=== PATIENT | female | born 1995 | race Caucasian/White ===

== ENCOUNTER 2016-07-22 11:23 | Emergency (ER) | payer OTHER ==
[~2016-07-22] VITALS: Ht 157.5 cm; Wt 63.5 kg
[~2016-07-22 11:23] MED LIST: BIRTH CONTROL; DOXY-4 PO; HYDR-1189 PO; HYDR-4100 PO; IBUP-1969 PO; PHEN16.227 PO; SIME80TA5 PO
[2016-07-22 11:26] VITALS: BP 113/78; PULSE 88; RESP 16; TEMP 98; O2SAT 97
[2016-07-22 12:48] LABS: BILIRUBIN,URINE NEGATIVE (NEGATIVE); BLOOD, URINE NEGATIVE (NEGATIVE); CLARITY/URINE CLEAR (CLEAR); COLOR,URINE YELLOW (YELLOW); GLUCOSE,URINE NEGATIVE (NEGATIVE); KETONES,URINE 1+ (NEGATIVE); LEUKOCYTE ESTERASE ,URINE TRACE (NEGATIVE); NITRITE, URINE NEGATIVE (NEGATIVE); PROTEIN URINE NEGATIVE (NEGATIVE); UROBILINOGEN,URINE 0.2 (0.2-1.0)
[2016-07-22 12:52] LABS: BASOPHILS # (AUTO) 0.1 K/uL (0.0-0.2); BASOPHILS % (AUTO) 1.6 % (0.0-2.0); EOSINOPHILS # (AUTO) 0.1 K/uL (0.0-0.4); EOSINOPHILS % (AUTO) 1.4 % (0.0-4.0); HEMATOCRIT 36.4 % (36-48); HEMOGLOBIN 12.6 g/dL (12.0-16.0); LYMPHOCYTES # (AUTO) 1.7 K/uL (1.0-5.5); LYMPHOCYTES % (AUTO) 22.2 % (20.5-51.5); MEAN CORPUSCULAR HEMOGLOBIN 30 pg (27-31); MEAN CORPUSCULAR HGB CONC 35 % (32-36); MEAN CORPUSCULAR VOLUME 86 fL (79.0-98.0); MONOCYTES # (AUTO) 0.6 K/uL (0.0-1.0); MONOCYTES % (AUTO) 7.8 % (1.7-9.3); NEUTROPHILS # (AUTO) 5.3 K/uL (1.8-7.7); PLATELET COUNT (AUTO) 306 K/uL (130-430); RED BLOOD CELL COUNT(AUTO) 4.25 MIL/uL (4.2-6.2); RED CELL DISTRIBUTION WIDTH 12.2 % (9.0-15.0); WHITE BLOOD COUNT (AUTO) 7.8 K/uL (4.5-11.0)
[2016-07-22 12:58] LABS: BACTERIA,URINE MODERATE /HPF (None Seen); MUCUS,URINE 1+ /LPF (None Seen); RBC,URINE 0-3 /HPF (0-3)
[2016-07-22 13:05] LABS: INR 1.1 (0.8-1.2); PROTHROMBIN TIME 11.4 SECS (9.5-12.5)
[2016-07-22 13:13] LABS: CALCIUM 8.9 mg/dL (8.4-11.0); CREATININE 0.71 mg/dL (0.55-1.30); POTASSIUM 3.7 mmol/L (3.5-5.1)
[2016-07-22 13:18] LABS: ALBUMIN 3.9 g/dL (3.4-4.8); TOTAL BILIRUBIN 0.5 mg/dL (0.0-1.0); TOTAL PROTEIN, SERUM 7.2 g/dL (6.4-8.3)
[2016-07-22] MEDS ORDERED: MORPHINE 4 MG/ML INJ. SYRINGE IVP ONE ×2 (14:00→14:45)
[2016-07-22] MEDS ORDERED: ONDANSETRON HCL 4 MG/2 ML VIAL IVP ONE ×2 (14:15→14:45)
[2016-07-22 15:30] VITALS: BP 114/80; PULSE 84; RESP 16; TEMP 98; O2SAT 97
== END 2016-07-22 15:30 | disposition home or self-care (01) ==
LOC: SED 11:23
DX: R10.32 Left lower quadrant pain (principal); Z88.0 Allergy status to penicillin; Z88.6 Allergy status to analgesic agent; Z88.8 Allergy status to other drugs, medicaments and biological substances
CPT/HCPCS: 36415; 74176; 80053; 81000; 81025; 82150; 83690; 84703; 85025; 85610; 85730; 87086; 96374; 96375; 99285; J2270; J2405

== ENCOUNTER 2017-09-26 13:22 | Observation (INO) | payer BC, OTHER ==
[~2017-09-26] VITALS: Ht 154.9 cm; Wt 61.2 kg
[2017-09-26 13:30] VITALS: BP_SYST 109
[2017-09-26] MEDS ORDERED: MORPHINE 4 MG/ML INJ. SYRINGE IVP ONE (13:45)
[2017-09-26] MEDS ORDERED: DIPHENHYDRAMINE INJ 50 MG/ML VIAL IVP ONE (13:45)
[2017-09-26 14:00] LABS: BILIRUBIN,URINE NEGATIVE (NEGATIVE); BLOOD, URINE NEGATIVE (NEGATIVE); CLARITY/URINE CLEAR (CLEAR); COLOR,URINE YELLOW (YELLOW); GLUCOSE,URINE NEGATIVE (NEGATIVE); KETONES,URINE NEGATIVE (NEGATIVE); LEUKOCYTE ESTERASE ,URINE 1+ (NEGATIVE); NITRITE, URINE NEGATIVE (NEGATIVE); PH,URINE 7.5 (5.0-8.0); PROTEIN URINE NEGATIVE (NEGATIVE); UROBILINOGEN,URINE 0.2 (0.2-1.0)
[2017-09-26 14:17] LABS: BACTERIA,URINE MODERATE /HPF (None Seen); MUCUS,URINE None Seen /LPF (None Seen); RBC,URINE NONE SEEN /HPF (0-3)
[2017-09-26 14:29] LABS: BASOPHILS % (AUTO) 0.7 % (0.0-2.0); EOSINOPHILS # (AUTO) 0.1 K/uL (0.0-0.4); EOSINOPHILS % (AUTO) 1.7 % (0.0-4.0); HEMATOCRIT 39.8 % (36-48); HEMOGLOBIN 13.6 g/dL (12.0-16.0); LYMPHOCYTES # (AUTO) 1.8 K/uL (1.0-5.5); LYMPHOCYTES % (AUTO) 27.1 % (20.5-51.5); MEAN CORPUSCULAR HEMOGLOBIN 30 pg (27-31); MEAN CORPUSCULAR HGB CONC 34 % (32-36); MEAN CORPUSCULAR VOLUME 88 fL (79.0-98.0); MONOCYTES # (AUTO) 0.7 K/uL (0.0-1.0); MONOCYTES % (AUTO) 9.9 % (1.7-9.3); NEUTROPHILS % (AUTO) 60.6 % (40.0-70.0); PLATELET COUNT (AUTO) 319 K/uL (130-430); RED CELL DISTRIBUTION WIDTH 12.2 % (9.0-15.0); WHITE BLOOD COUNT (AUTO) 6.6 K/uL (4.5-11.0)
[2017-09-26 14:32] LABS: CALCIUM 9.6 mg/dL (8.4-11.0); CREATININE 0.71 mg/dL (0.55-1.30); POTASSIUM 3.5 mmol/L (3.5-5.1)
[2017-09-26] MEDS ORDERED: cefTRIAXone 1 GM IVPB PREMIX 50 ML IV ONE (14:45)
[2017-09-26 14:46] LABS: TOTAL BILIRUBIN 0.4 mg/dL (0.0-1.0)
[2017-09-26] MEDS ORDERED: MORPHINE 2 MG/ML INJ. SYRINGE IVP ONE (16:00)
[2017-09-26] MEDS ORDERED: MORPHINE 4 MG/ML INJ. SYRINGE ONE (16:00)
[2017-09-26] MEDS ORDERED: MAGNESIUM CITRATE 300 ML ORAL SOLUTION PO ONE (16:15)
[2017-09-26] MEDS ORDERED: D5/0.45 NS 1,000 ML IV ONE (18:00)
[2017-09-26 18:38] VITALS: BP_SYST 113
[2017-09-26 19:00] VITALS: BP_SYST 118
[2017-09-26] MEDS: MORPHINE 4 MG/ML INJ. SYRINGE IVP PRN ×2 (19:29→22:41)
[2017-09-26] MEDS: ONDANSETRON HCL 4 MG/2 ML VIAL IVP PRN (21:43)
[2017-09-26 22:16] VITALS: BP_SYST 106
[2017-09-26] MEDS: traMADol HCL HCL 50 MG TABLET (ULTRAM) PO SCH ×2 (23:38→23:45)
[2017-09-27] MEDS: MORPHINE 4 MG/ML INJ. SYRINGE IVP PRN ×3 (01:47→14:01)
[2017-09-27] MEDS: traMADol HCL HCL 50 MG TABLET (ULTRAM) PO SCH ×3 (05:46→18:00)
[2017-09-27 08:03] VITALS: BP_SYST 94
[2017-09-27] MEDS: ONDANSETRON HCL 4 MG/2 ML VIAL IVP PRN ×2 (11:27→22:53)
[2017-09-27 12:31] VITALS: BP_SYST 91
[2017-09-27 16:35] VITALS: BP_SYST 90
[2017-09-27] MEDS ORDERED: fentaNYL CITRATE 250 MCG/5 ML AMP IV ONE (17:40)
[2017-09-27] MEDS ORDERED: BUPIVACAINE /PF 0.5% 30 ML VIAL INJ ONE (17:40)
[2017-09-27] MEDS ORDERED: DEXAMETHASONE SOD PHOSPHATE 4 MG/ML VIAL IVP ONE (17:40)
[2017-09-27] MEDS ORDERED: MEPERIDINE HCL/PF 100 MG/ML AMP IM ONE (17:40)
[2017-09-27] MEDS ORDERED: ONDANSETRON HCL 4 MG/2 ML VIAL IVP ONE ×2 (17:40→18:45)
[2017-09-27] MEDS ORDERED: SEVOFLURANE 15 MIN GAS INH ONE (17:40)
[2017-09-27] MEDS ORDERED: PROPOFOL 200MG/ 20ML VIAL (DIPRIVAN) IV ONE (17:40)
[2017-09-27] MEDS ORDERED: MIDAZOLAM HCL 5 MG/5 ML VIAL IVP ONE (17:40)
[2017-09-27] MEDS ORDERED: ROCURONIUM BROMIDE 10 MG/ML (ZEMURON) IV ONE (17:40)
[2017-09-27] MEDS ORDERED: LIDOCAINE 1% 10 MG/ML, 20 ML MDV INJ ONE (17:40)
[2017-09-27] MEDS ORDERED: NEOSTIGMINE METHYLSULFATE 1 MG/ML, 10 ML VIAL IVP ONE (17:40)
[2017-09-27] MEDS ORDERED: CEFAZOLIN 2 GM IVPB PREMIX 50 ML IV ONE (17:40)
[2017-09-27] MEDS ORDERED: SUCCINYLCHOLINE CHLORIDE 20 MG/ML(QUELICIN) IVP ONE (17:40)
[2017-09-27] MEDS ORDERED: EPINEPHrine 1 MG/ML AMP IV ONE (17:40)
[2017-09-27] MEDS ORDERED: GLYCOPYRROLATE 0.2 MG/ML VIAL IJ ONE (17:40)
[2017-09-27] MEDS ORDERED: BUPIVACAINE /PF 0.25% 30 ML VIAL INJ ONE (17:40)
[2017-09-27] MEDS ORDERED: MORPHINE 4 MG/ML INJ. SYRINGE IVP PRN ×2 (18:30→18:45)
[2017-09-27] MEDS ORDERED: HYDROcodone/ACETAMIN 5-325 MG TAB (NORCO/ VICODIN) PO PRN (18:30)
[2017-09-27] MEDS ORDERED: ONDANSETRON HCL 4 MG/2 ML VIAL IVP PRN (18:30)
[2017-09-27] MEDS ORDERED: MEPERIDINE HCL/PF 25 MG/ML DISP.SYRIN IVP PRN (18:45)
[2017-09-27] MEDS ORDERED: fentaNYL CITRATE/PF 100 MCG/2 ML AMP IVP PRN (18:45)
[2017-09-27] MEDS ORDERED: NALOXONE HCL 0.4 MG/ML AMP (NARCAN) IVP ONE (18:45)
[2017-09-27] MEDS ORDERED: MIDAZOLAM HCL 5 MG/5 ML VIAL IVP PRN (18:45)
[2017-09-27 19:13] LABS: BILIRUBIN,URINE NEGATIVE (NEGATIVE); BLOOD, URINE NEGATIVE (NEGATIVE); CLARITY/URINE HAZY (CLEAR); COLOR,URINE YELLOW (YELLOW); GLUCOSE,URINE NEGATIVE (NEGATIVE); KETONES,URINE 2+ (NEGATIVE); LEUKOCYTE ESTERASE ,URINE NEGATIVE (NEGATIVE); NITRITE, URINE NEGATIVE (NEGATIVE); PH,URINE 8.5 (5.0-8.0); PROTEIN URINE NEGATIVE (NEGATIVE); UROBILINOGEN,URINE 0.2 (0.2-1.0)
[2017-09-27 19:24] LABS: BACTERIA,URINE MODERATE /HPF (None Seen); MUCUS,URINE None Seen /LPF (None Seen); RBC,URINE 0-3 /HPF (0-3); URINE AMORPHOUS PHOSPHATES 3+ /HPF (None Seen); WBC,URINE 0-3 /HPF (0-3)
[2017-09-27 20:12] VITALS: BP_SYST 113
[2017-09-27] MEDS: OXYCODONE/ACETAMINOPHEN 5-325 TABLET PO PRN (22:54)
[2017-09-28 00:32] VITALS: BP_SYST 102
[2017-09-28] MEDS: traMADol HCL HCL 50 MG TABLET (ULTRAM) PO SCH ×3 (00:46→11:32)
[2017-09-28 08:10] VITALS: BP_SYST 92
[2017-09-28] MEDS: OXYCODONE/ACETAMINOPHEN 5-325 TABLET PO PRN (08:38)
[2017-09-28] MEDS ORDERED: TRAM50TA92 PO (08:50)
[2017-09-28 09:13] VITALS: BP_SYST 92
[2017-09-28 12:36] VITALS: BP_SYST 97
== END 2017-09-28 12:05 | disposition home or self-care (01) ==
LOC: SED 13:22 → SMU 18:01
PROVIDERS: ADMIT Specialist; ATTEND Specialist
DX: N93.8 Other specified abnormal uterine and vaginal bleeding (principal); N80.9 Endometriosis, unspecified; R10.2 Pelvic and perineal pain
CPT/HCPCS: 36415; 58662; 74018; 76830; 76857; 80053; 81000 ×2; 81025; 83605; 84702; 85025; 87040; 87081; 87086 ×2; 96365; 96375; 96376; 99285; C1727; G0378 ×3; J0171; J0330; J0690; J0696; J1100; J1200; J2001; J2175; J2250; J2270 ×2; J2405 ×2; J2704; J2710; J3010; J3490 ×3

== ENCOUNTER 2017-12-17 21:29 | Inpatient (IN) | payer OTHER ==
[~2017-12-17] VITALS: Ht 154.9 cm; Wt 62.6 kg
[~2017-12-17 21:29] MED LIST changes: -BIRTH CONTROL; -DOXY-4 PO; -HYDR-1189 PO; -HYDR-4100 PO; -IBUP-1969 PO; -PHEN16.227 PO; -SIME80TA5 PO; +TRAM50TA92 PO
[2017-12-17 21:34] VITALS: BP_SYST 134
[2017-12-17] MEDS ORDERED: NACL 0.9% 1,000 ML IV ONE (23:24)
[2017-12-17] MEDS ORDERED: DIPHENHYDRAMINE INJ 50 MG/ML VIAL IVP ONE (23:30)
[2017-12-17] MEDS ORDERED: MORPHINE 2 MG/ML INJ. SYRINGE IVP ONE (23:30)
[2017-12-17 23:52] LABS: BASOPHILS # (AUTO) 0.1 K/uL (0.0-0.2); BASOPHILS % (AUTO) 1.1 % (0.0-2.0); EOSINOPHILS # (AUTO) 0.2 K/uL (0.0-0.4); EOSINOPHILS % (AUTO) 1.5 % (0.0-4.0); HEMATOCRIT 36.8 % (36-48); HEMOGLOBIN 12.7 g/dL (12.0-16.0); LYMPHOCYTES # (AUTO) 2.6 K/uL (1.0-5.5); LYMPHOCYTES % (AUTO) 25.2 % (20.5-51.5); MEAN CORPUSCULAR HEMOGLOBIN 31 pg (27-31); MEAN CORPUSCULAR HGB CONC 35 % (32-36); MEAN CORPUSCULAR VOLUME 90 fL (79.0-98.0); MONOCYTES # (AUTO) 0.7 K/uL (0.0-1.0); MONOCYTES % (AUTO) 7.2 % (1.7-9.3); NEUTROPHILS # (AUTO) 6.7 K/uL (1.8-7.7); PLATELET COUNT (AUTO) 320 K/uL (130-430); RED CELL DISTRIBUTION WIDTH 12.3 % (9.0-15.0); WHITE BLOOD COUNT (AUTO) 10.3 K/uL (4.8-10.8)
[2017-12-18 00:07] LABS: CALCIUM 8.6 mg/dL (8.4-11.0); CREATININE 0.67 mg/dL (0.55-1.30); POTASSIUM 3.5 mmol/L (3.5-5.1)
[2017-12-18 00:25] LABS: ALBUMIN 3.3 g/dL (3.4-4.8); TOTAL BILIRUBIN 0.2 mg/dL (0.0-1.0)
[2017-12-18 00:25] LABS: BILIRUBIN,URINE NEGATIVE (NEGATIVE); BLOOD, URINE 3+ (NEGATIVE); CLARITY/URINE CLOUDY (CLEAR); COLOR,URINE RED (YELLOW); GLUCOSE,URINE NEGATIVE (NEGATIVE); KETONES,URINE NEGATIVE (NEGATIVE); LEUKOCYTE ESTERASE ,URINE TRACE (NEGATIVE); NITRITE, URINE NEGATIVE (NEGATIVE); PH,URINE 8.5 (5.0-8.0); PROTEIN URINE 2+ (NEGATIVE); UROBILINOGEN,URINE 0.2 (0.2-1.0)
[2017-12-18 00:55] LABS: BACTERIA,URINE MANY /HPF (None Seen); MUCUS,URINE 1+ /LPF (None Seen); RBC,URINE 80-100 /HPF (0-3); URINE AMORPHOUS PHOSPHATES 2+ /HPF (None Seen)
[2017-12-18] MEDS ORDERED: MORPHINE 4 MG/ML INJ. SYRINGE IVP ONE (01:00)
[2017-12-18] MEDS ORDERED: DIPHENHYDRAMINE INJ 50 MG/ML VIAL IVP ONE (01:00)
[2017-12-18] MEDS ORDERED: MORPHINE SULFATE 10 MG/ML VIAL IVP ONE (01:45)
[2017-12-18] MEDS ORDERED: ONDANSETRON HCL 4 MG/2 ML VIAL IVP ONE ×2 (01:45→09:25)
[2017-12-18] MEDS ORDERED: LORA2TAB95 PO (02:42)
[2017-12-18] MEDS ORDERED: D5LR 1,000 ML IV ONE (02:45)
[2017-12-18 03:07] VITALS: BP_SYST 107
[2017-12-18] MEDS ORDERED: ALPR0.5T PO (05:11)
[2017-12-18] MEDS: MORPHINE SULFATE 10 MG/ML VIAL IVP PRN ×6 (05:14→23:14)
[2017-12-18] MEDS ORDERED: PROPOFOL 200MG/ 20ML VIAL (DIPRIVAN) IV ONE (09:25)
[2017-12-18] MEDS ORDERED: CEFAZOLIN 2 GM IVPB PREMIX 50 ML IV ONE (09:25)
[2017-12-18] MEDS ORDERED: LIDOCAINE 1% 10 MG/ML, 20 ML MDV INJ ONE (09:25)
[2017-12-18] MEDS ORDERED: ROCURONIUM BROMIDE 10 MG/ML (ZEMURON) IV ONE (09:25)
[2017-12-18] MEDS ORDERED: fentaNYL CITRATE/PF 100 MCG/2 ML AMP IVP ONE (09:25)
[2017-12-18] MEDS ORDERED: DEXAMETHASONE SOD PHOSPHATE 4 MG/ML VIAL IVP ONE (09:25)
[2017-12-18] MEDS ORDERED: MIDAZOLAM HCL 5 MG/5 ML VIAL IVP ONE (09:25)
[2017-12-18] MEDS ORDERED: MEPERIDINE HCL/PF 100 MG/ML AMP IM ONE (09:25)
[2017-12-18] MEDS ORDERED: LR 1,000 ML IV.SOLN IV ONE (09:25)
[2017-12-18] MEDS ORDERED: SEVOFLURANE 15 MIN GAS INH ONE (09:25)
[2017-12-18] MEDS ORDERED: SUCCINYLCHOLINE CHLORIDE 20 MG/ML(QUELICIN) IVP ONE (09:25)
[2017-12-18 09:29] VITALS: BP_SYST 93
[2017-12-18 12:26] VITALS: BP_SYST 90
[2017-12-18] MEDS: ONDANSETRON HCL 4 MG/2 ML VIAL IVP PRN ×2 (15:02→20:17)
[2017-12-18 16:34] VITALS: BP_SYST 92
[2017-12-18 20:15] VITALS: BP_SYST 110
[2017-12-19] MEDS: ONDANSETRON HCL 4 MG/2 ML VIAL IVP PRN ×2 (01:38→15:59)
[2017-12-19 01:52] VITALS: BP_SYST 92
[2017-12-19] MEDS: MORPHINE SULFATE 10 MG/ML VIAL IVP PRN ×4 (02:23→19:06)
[2017-12-19 08:31] VITALS: BP_SYST 107
[2017-12-19] MEDS ORDERED: ONDANSETRON HCL 4 MG/2 ML VIAL IVP PRN (11:15)
[2017-12-19] MEDS ORDERED: IBUPROFEN 800 MG TABLET PO PRN (11:15)
[2017-12-19] MEDS ORDERED: ONDANSETRON HCL 4 MG/2 ML VIAL IVP ONE (11:15)
[2017-12-19] MEDS ORDERED: HYDROmorphone 1 MG INJ. 1 MG/ML AMPUL IVP PRN (11:15)
[2017-12-19] MEDS ORDERED: MIDAZOLAM HCL 5 MG/5 ML VIAL IVP PRN (11:15)
[2017-12-19] MEDS ORDERED: fentaNYL CITRATE/PF 100 MCG/2 ML AMP IVP PRN (11:15)
[2017-12-19] MEDS ORDERED: MEPERIDINE HCL/PF 25 MG/ML DISP.SYRIN IVP PRN (11:15)
[2017-12-19] MEDS ORDERED: NALOXONE HCL 0.4 MG/ML AMP (NARCAN) IVP ONE (11:15)
[2017-12-19] MEDS ORDERED: MEPERIDINE HCL/PF 50 MG/ML AMP IVP PRN (14:15)
[2017-12-19 16:00] VITALS: BP_SYST 106
[2017-12-19 20:00] VITALS: BP_SYST 103
[2017-12-20] MEDS: MORPHINE SULFATE 10 MG/ML VIAL IVP PRN (01:16)
[2017-12-20 01:36] VITALS: BP_SYST 116
[2017-12-20 08:40] VITALS: BP_SYST 108
[2017-12-20] MEDS: ONDANSETRON HCL 4 MG/2 ML VIAL IVP PRN (09:04)
[2017-12-20] MEDS: OXYCODONE/ACETAMINOPHEN 5-325 TABLET PO PRN ×2 (09:04→13:30)
[2017-12-20 12:20] VITALS: BP_SYST 96
[2017-12-20] MEDS ORDERED: OXYC-130 PO (16:07)
[2017-12-20] MEDS ORDERED: NITR-85 PO (16:07)
[2017-12-20 16:13] VITALS: BP_SYST 96
[2017-12-20 16:35] VITALS: BP_SYST 94
== END 2017-12-20 17:06 | disposition home or self-care (01) | DRG 513 ==
LOC: SED 21:29 → SMU 12-18 02:34
PROVIDERS: ADMIT Specialist; ATTEND Specialist
PROC: 0UB14ZZ Excision of Left Ovary, Percutaneous Endoscopic Approach (ICD-10-PCS; principal; 2017-12-19 09:45)
DX: N83.202 Unspecified ovarian cyst, left side (principal); N39.0 Urinary tract infection, site not specified; F41.9 Anxiety disorder, unspecified; N80.0 Endometriosis of uterus; N80.3 Endometriosis of pelvic peritoneum; N92.0 Excessive and frequent menstruation with regular cycle; Z88.0 Allergy status to penicillin; Z88.8 Allergy status to other drugs, medicaments and biological substances; Z79.899 Other long term (current) drug therapy
CPT/HCPCS: 36415; 76830-TC; 76857; 80053; 81000-TC; 81025; 84703; 85025; 87081; 87086; 88305; 96361; 96374; 96375; 96376; 99285; C1727; J0330; J0690; J1100; J1200; J2001; J2175; J2250; J2270; J2405; J2704; J3010; J7030; J7120

== ENCOUNTER 2018-01-21 00:36 | Emergency (ER) | payer OTHER ==
[~2018-01-21] VITALS: Ht 157.5 cm; Wt 63.5 kg
[~2018-01-21 00:36] MED LIST changes: +NITR-85 PO; +OXYC-130 PO; -TRAM50TA92 PO
[2018-01-21 01:12] VITALS: BP_SYST 150
[2018-01-21] MEDS ORDERED: MORPHINE 4 MG/ML INJ. SYRINGE IM ONE (02:30)
[2018-01-21] MEDS ORDERED: ONDANSETRON 4 MG ODT TAB PO ONE (02:30)
[2018-01-21] MEDS ORDERED: HYDROcodone/ACETAMIN 10-325 MG TAB PO ONE (02:30)
[2018-01-21 03:06] VITALS: BP_SYST 132
== END 2018-01-21 03:06 | disposition home or self-care (01) ==
LOC: SED 00:36
DX: R10.30 Lower abdominal pain, unspecified (principal); N80.9 Endometriosis, unspecified; F41.9 Anxiety disorder, unspecified; Z88.6 Allergy status to analgesic agent; Z88.0 Allergy status to penicillin; Z88.8 Allergy status to other drugs, medicaments and biological substances
CPT/HCPCS: 96372; 99283; J2270; Q0162

== ENCOUNTER 2018-02-26 10:40 | Emergency (ER) | payer OTHER ==
[~2018-02-26] VITALS: Ht 157.5 cm; Wt 62.6 kg
[2018-02-26 10:53] VITALS: BP_SYST 137
[2018-02-26] MEDS ORDERED: fentaNYL CITRATE/PF 100 MCG/2 ML AMP IVP ONE ×2 (11:45→14:45)
[2018-02-26] MEDS ORDERED: KETAMINE 30 MG/3 ML SYRINGE 20 MG in NS 100 ML IV ONE (13:45)
[2018-02-26] MEDS ORDERED: KETAMINE 30 MG/3 ML SYRINGE ONE (13:48)
[2018-02-26 15:30] VITALS: BP_SYST 122
== END 2018-02-26 15:30 | disposition home or self-care (01) ==
LOC: SED 11:05
DX: R10.2 Pelvic and perineal pain (principal); N71.9 Inflammatory disease of uterus, unspecified; N83.519 Torsion of ovary and ovarian pedicle, unspecified side; F41.9 Anxiety disorder, unspecified; Z88.6 Allergy status to analgesic agent; Z88.0 Allergy status to penicillin; Z88.8 Allergy status to other drugs, medicaments and biological substances
CPT/HCPCS: 76830; 76857; 96374; 96375; 96376; 99284; J3010

== ENCOUNTER 2018-03-10 07:56 | Inpatient (IN) | payer OTHER ==
[~2018-03-10] VITALS: Ht 157.5 cm; Wt 63.5 kg
[2018-03-10 08:01] VITALS: BP_SYST 102
--- NOTE | 2018-03-10 08:09 | NUR ---
Patient to ER bed 7 to gown for evaluation. Side rails up. Report given to Sabrina DE LOS SANTOS.
--- NOTE | 2018-03-10 08:12 | NUR ---
Pt complains of pelvic pain since yesterday, states is unable to move legs, woke up crying in pain. Pt states has endometrosis and her menstrual cycles has been increasingly more painful. Pt denies n/v or fever. No other injuries/complainst per pt or noted.
--- NOTE | 2018-03-10 08:12 | NUR ---
ER Dr. Moreno at bedside examining patient.
[2018-03-10] MEDS ORDERED: fentaNYL CITRATE/PF 100 MCG/2 ML AMP IVP ONE ×2 (08:15→11:00)
--- NOTE | 2018-03-10 08:16 | NUR ---
Pain medication was given to pt, tolerated well
[2018-03-10 08:42] LABS: BASOPHILS # (AUTO) 0.1 K/uL (0.0-0.2); BASOPHILS % (AUTO) 1.5 % (0.0-2.0); EOSINOPHILS # (AUTO) 0.2 K/uL (0.0-0.4); EOSINOPHILS % (AUTO) 3.7 % (0.0-4.0); HEMATOCRIT 37.5 % (36-48); HEMOGLOBIN 12.7 g/dL (12.0-16.0); LYMPHOCYTES # (AUTO) 1.7 K/uL (1.0-5.5); LYMPHOCYTES % (AUTO) 29.7 % (20.5-51.5); MEAN CORPUSCULAR HEMOGLOBIN 31 pg (27-31); MEAN CORPUSCULAR HGB CONC 34 % (32-36); MEAN CORPUSCULAR VOLUME 90 fL (79.0-98.0); MONOCYTES # (AUTO) 0.6 K/uL (0.0-1.0); MONOCYTES % (AUTO) 10.2 % (1.7-9.3); NEUTROPHILS % (AUTO) 54.9 % (40.0-70.0); PLATELET COUNT (AUTO) 338 K/uL (130-430); RED BLOOD CELL COUNT(AUTO) 4.15 MIL/uL (4.2-6.2); RED CELL DISTRIBUTION WIDTH 12.5 % (9.0-15.0); WHITE BLOOD COUNT (AUTO) 5.6 K/uL (4.8-10.8)
[2018-03-10] MEDS ORDERED: KETAMINE 30 MG/3 ML SYRINGE 25 MG in NS 100 ML IV ONE (09:00)
[2018-03-10] MEDS ORDERED: KETAMINE 30 MG/3 ML SYRINGE ONE (09:10)
--- NOTE | 2018-03-10 09:14 | NUR ---
Pain medication was given to pt, tolerated well
[2018-03-10 09:19] LABS: BILIRUBIN,URINE NEGATIVE (NEGATIVE); BLOOD, URINE 3+ (NEGATIVE); CLARITY/URINE SL HAZY (CLEAR); COLOR,URINE YELLOW (YELLOW); GLUCOSE,URINE NEGATIVE (NEGATIVE); KETONES,URINE NEGATIVE (NEGATIVE); LEUKOCYTE ESTERASE ,URINE NEGATIVE (NEGATIVE); PROTEIN URINE NEGATIVE (NEGATIVE)
[2018-03-10 09:20] LABS: NITRITE, URINE NEGATIVE (NEGATIVE); UROBILINOGEN,URINE 0.2 (0.2-1.0)
[2018-03-10 09:25] LABS: BACTERIA,URINE RARE /HPF (None Seen); RBC,URINE 20-50 /HPF (0-3); WBC,URINE 0-3 /HPF (0-3)
--- NOTE | 2018-03-10 10:22 | NUR ---
Pt complaining of pain still, Dr Moreno is aware and will be ordering more pain medicaiton
[2018-03-10] MEDS ORDERED: METOCLOPRAMIDE HCL 10 MG/2 ML VIAL IVP ONE (11:00)
[2018-03-10] MEDS ORDERED: DIPHENHYDRAMINE INJ 50 MG/ML VIAL IVP ONE (11:00)
--- NOTE | 2018-03-10 11:01 | NUR ---
Medications were given to pt, tolerated well
--- NOTE | 2018-03-10 12:39 | NUR ---
Pt states is not taking any home medications at this time.
--- NOTE | 2018-03-10 13:15 | NUR ---
Dr Moreno is at bedside speaking with pt about results.
--- NOTE | 2018-03-10 13:56 | NUR ---
Patient will be admitted to care of Dr Redmond. Admitted to Med Surg unit. Will go to room 123B. Belongings list completed. Summary report printed. Report will be given at bedside.
--- NOTE | 2018-03-10 14:02 | NUR ---
ADMISSION NOTE Received patient from ER via becky, received report from Sabrina DE LOS SANTOS. Patient admitted with diagnosis of PELVIC PAIN. Patient oriented to hospital routine, call light, toileting and safety-patient verbalized understanding.
[2018-03-10 14:16] VITALS: BP_SYST 97
--- NOTE | 2018-03-10 14:30 | NUR ---
Rounds patient is resting in bed. IV is on the RAC running D5 1/2NS@100. Minor amount of bloody drainage noted over patient maxi pad. Will continue to monitor.
[2018-03-10] MEDS: D5/0.45 NS 1,000 ML IV SCH (16:00)
--- NOTE | 2018-03-10 16:50 | NUR ---
Spoke with Spoke with Dr. Redmond. stated that he will come and see the patient shortly.
[2018-03-10] MEDS: traMADol HCL HCL 50 MG TABLET (ULTRAM) PO PRN (17:46)
[2018-03-10] MEDS: METOCLOPRAMIDE HCL 10 MG/2 ML VIAL IVP SCH (17:47)
--- NOTE | 2018-03-10 18:12 | NUR ---
Closing Note Patient is eating dinner in bed. Dr. Redmond assessed the patient at the bedside and orders were received. IV is on the RAC 20g running D51/2NS@100. Call light is within reach and bed is in low position. Will endorse care to the oncoming shift.
[2018-03-10 20:00] VITALS: BP_SYST 125
--- NOTE | 2018-03-10 20:00 | NUR ---
INITIAL NOTES: PATIENT IN BED ,AWAKE ,ALERT ,ORIENTED X4. VITAL SIGNS TAKEN. ALL WITHIN NORMAL LIMITS. FAMILIES AT BEDSIDE. HAS TOLERABLE LOW ABDOMEN. CALL LIGHT WITHIN REACH. BED IN LOW POSITION. HAS SCANT VAGINAL BLEED THIS TIME. WILL MONITOR CLOSELY.
--- NOTE | 2018-03-10 20:50 | NUR ---
PATIENT AND MOTHER REQUESTED TO CALL MD FOR BENADRYL DUE TO ITCHING .
[2018-03-10] MEDS ORDERED: DIPHENHYDRAMINE HCL 50 MG CAPSULE PO PRN (21:15)
[2018-03-10] MEDS ORDERED: DIPHENHYDRAMINE INJ 50 MG/ML VIAL IVP PRN (21:15)
[2018-03-10] MEDS ORDERED: DIPHENHYDRAMINE HCL 25 MG CAPSULE PO PRN (21:15)
--- NOTE | 2018-03-10 21:15 | NUR ---
PAGED DR. RAMÍREZ AND CALLED BACK RIGHT AWAY,INFORMED PATIENT PROBLEM AND CONCERN WITH ORDERS.
[2018-03-10] MEDS: DIPHENHYDRAMINE INJ 50 MG/ML VIAL IVP PRN (22:18)
--- NOTE | 2018-03-10 22:18 | NUR ---
ITCHING: PATIENT CALLED ,REQUESTING FOR BENADYRL. 25MG IV GIVEN SLOWLY. IV WITH BLOOD RETURN, SITE CLEAR.
[2018-03-11 00:30] VITALS: BP_SYST 128
--- NOTE | 2018-03-11 00:30 | NUR ---
PAIN: COMPLAIN OF LOW ABDOMEN PAIN. TRAMADOL 100MH PO GIVEN. AMBULATED TO BATHROOM WITHOUT DIFFICULTY TO VOID. HAS MOD.OLD VAGINAL BLEED. ALL LINENS CHANGED.
[2018-03-11] MEDS: traMADol HCL HCL 50 MG TABLET (ULTRAM) PO PRN ×4 (00:31→22:41)
[2018-03-11] MEDS: METOCLOPRAMIDE HCL 10 MG/2 ML VIAL IVP SCH ×5 (00:31→18:00)
[2018-03-11] MEDS: D5/0.45 NS 1,000 ML IV SCH ×3 (00:39→20:59)
[2018-03-11] MEDS: DIPHENHYDRAMINE INJ 50 MG/ML VIAL IVP PRN ×4 (04:28→22:41)
--- NOTE | 2018-03-11 04:28 | NUR ---
itching: patient called asking for benadryl due to mild itching. 25 mg iv benadryl given ,iv site clear.
--- NOTE | 2018-03-11 06:40 | NUR ---
CLOSING: ALL NEEDS WERE ATTENDED.ABDOMINAL PAIN FAIRLY CONTROLLED BY TRAMADOL, ITCHING WITH IV BENADRYL. CALL LIGHT HAS BEEN WITHIN REACH ,USED TO CALL FOR ANY NEEDS. BED IN LOW POSITION. NO ACUTE DISTRESS WHOLE SHIFT.
--- NOTE | 2018-03-11 07:37 | NUR ---
opening note pt awake alert. no distress noted. pt ambulated top the restroom. iv to the right ac noted. pt reoriented to call light use, visibly within reach. safety maintained.
[2018-03-11 08:00] VITALS: BP_SYST 100
--- NOTE | 2018-03-11 08:05 | NUR ---
pt requesting ivp reglan given at this time. no distress noted. safety maintained.
--- NOTE | 2018-03-11 10:00 | NUR ---
Case mgt: Met w/pt and her mother at bedside and explained pt is out of network for her [facility] and possibly may need to transfer to in-network hospital if Dr. Redmond indicates pt not stable for discharge and the [facility] was given his phone number to discuss plan of care. Also, nurse Cavazos is contacting Dr. Redmond to check if pt going home today and if not, pt will need transfer order to contracted hospital if [facility] determines they desire to transfer pt in-network. SARAH DE LOS SANTOS
--- NOTE | 2018-03-11 10:41 | NUR ---
med pass pt c/o abd pain given tramadol as ordered. pt also stated she was itchy ivp Benadryl given at this time as well. safety maintained, no other distress noted.
[2018-03-11 12:16] VITALS: BP_SYST 110
--- NOTE | 2018-03-11 13:06 | NUR ---
IVP REGLAN GIVEN AT THIS TIME. NO DISTRESS NOTED.
--- NOTE | 2018-03-11 15:00 | NUR ---
PATIENT RESTING: Patient resting quietly. No acute distress noted. Vital signs within normal range.
[2018-03-11 16:34] VITALS: BP_SYST 114
--- NOTE | 2018-03-11 17:00 | NUR ---
pt c/o pain given tramadol as ordered. pt also c/o itchiness given Benadryl ivp
--- NOTE | 2018-03-11 18:58 | NUR ---
closing note all needs met through shift, safety maintained, will endorse care to nights shift,
[2018-03-11 19:45] VITALS: BP_SYST 106
--- NOTE | 2018-03-11 20:00 | NUR ---
INITIAL NOTES: PATIENT IN BED AWAKE ,ALERT ORIENTEDX4. HAS A FROWNING LOOK ON HER FACE. HAS MODERATE PELVIC PAIN,KNOWS PAIN MED IS DUE AT 22:30 PM. VITAL SIGNS TAKEN ,ALL WITHIN NORMAL LIMITS.CALL LIGHT WITHIN REACH. BED IN LOW POSITION. STATED STILL WITH MOD. MENSTRAL PERIODS BLEEDING. WILL MONITOR CLOSELY. IVF INFUSING AT AT 100ML/HR. SITE CLEAR.
--- NOTE | 2018-03-11 22:40 | NUR ---
PAIN /ITCHING: PATIENT CALLED FOR PAIN MED AND FOR ITCHING.TRAMADOL 100MG PO AND BENADRYL 25 MG IV GIVEN. WILL MONITOR CLOSELY. IVF INFUSING WELL.
[2018-03-12] VITALS: BP_SYST 106
[2018-03-12] MEDS: METOCLOPRAMIDE HCL 10 MG/2 ML VIAL IVP SCH ×3 (00:22→11:03)
--- NOTE | 2018-03-12 00:30 | NUR ---
ROUNDS: PATIENT STILL AWAKE WITH FAMILY AT BEDSIDE.
--- NOTE | 2018-03-12 02:30 | NUR ---
LEOBARDO WLKING TO BATHROOM TO VOID WITH STEADY GAIT.
--- NOTE | 2018-03-12 04:00 | NUR ---
ROUNDS: PATIENT SLEEPING THIS TIME. IVF INFUSING WELL.
--- NOTE | 2018-03-12 05:00 | NUR ---
PAIN/ITCHING: PATIENT CALLED FOR PAIN AND FOR ITCHING. NO RASHES SEEN,TRAMADOL 100MG PO AND BENADRYL 25MG IV GIVEN.AWAKE ALERT ORIENTED X4. CALL LIGHT NEARBY.
[2018-03-12] MEDS: DIPHENHYDRAMINE INJ 50 MG/ML VIAL IVP PRN ×2 (05:02→11:04)
[2018-03-12] MEDS: traMADol HCL HCL 50 MG TABLET (ULTRAM) PO PRN ×2 (05:03→11:05)
--- NOTE | 2018-03-12 06:30 | NUR ---
CLOSING: DUE MEDS GIVEN. AWAKENED. ALL NEEDS WERE MET. CALL LIGHT WITHIN REACH AND BED IN LOW POSITION FOR SAFETY. NO ACUTE DISTRESS WHOLE NIGHT.
[2018-03-12] MEDS: D5/0.45 NS 1,000 ML IV SCH (06:46)
--- NOTE | 2018-03-12 07:54 | NUR ---
opening note pt laying in bed awake watching tv. pt denies pain/ sob. call light visibly within reach. pt refusing bed alarm still. bed in lowest position.
[2018-03-12 08:00] VITALS: BP_SYST 100
--- NOTE | 2018-03-12 09:52 | NUR ---
DC PLANNING Called & spoke w Irena @ [facility], ph [phone], states not transferring pt to contracted hospital. Informed per Dr Redmond progress notes, anticipate dc home today.
--- NOTE | 2018-03-12 11:10 | NUR ---
MED PASS IVP REGLAN SCHEDULED GIVEN. PO TRAMADOL GIVEN FOR PAIN. PT ALSO C/O ITCHINESS, MEDICATED ORDERED.
[2018-03-12] MEDS ORDERED: TRAM1TAB33 PO (12:18)
[2018-03-12 12:21] VITALS: BP_SYST 100
[2018-03-12 12:35] VITALS: BP_SYST 111
--- NOTE | 2018-03-12 13:00 | NUR ---
D/C Patient Patient given medication reconciliation form and D/C instructions. Exit Care provided. Patient verbalized understanding. MD discussed with patient the results and treatment provided. Ambulatory with steady gait for discharge to home. Patient in stable condition, ID band removed. IV catheter removed, intact and dressing applied, no active bleeding. Rx of TRAMADOL given. Patient educated on pain management. All belongings sent with patient.
== END 2018-03-12 13:00 | disposition home or self-care (01) | DRG 532 ==
LOC: SED 07:56 → SMU 13:17
PROVIDERS: ADMIT Specialist; ATTEND Specialist
DX: N80.9 Endometriosis, unspecified (principal); F41.9 Anxiety disorder, unspecified; Z79.899 Other long term (current) drug therapy; Z88.0 Allergy status to penicillin; Z88.8 Allergy status to other drugs, medicaments and biological substances
CPT/HCPCS: 36415; 76830-TC; 76857; 81000-TC; 85025; 90656; 96365; 96375; 99285; J1200; J2765; J3010

== ENCOUNTER 2018-04-07 09:56 | Emergency (ER) | payer OTHER ==
[~2018-04-07] VITALS: Ht 157.5 cm; Wt 64.4 kg
[~2018-04-07 09:56] MED LIST changes: -NITR-85 PO; -OXYC-130 PO; +TRAM1TAB33 PO
[2018-04-07 10:02] VITALS: BP_SYST 123
[2018-04-07 10:25] VITALS: BP_SYST 123
== END 2018-04-07 10:25 | disposition home or self-care (01) ==
LOC: SED 09:56
DX: J02.8 Acute pharyngitis due to other specified organisms (principal); B97.89 Other viral agents as the cause of diseases classified elsewhere; R03.0 Elevated blood-pressure reading, without diagnosis of hypertension; Z90.49 Acquired absence of other specified parts of digestive tract; Z88.0 Allergy status to penicillin; Z88.6 Allergy status to analgesic agent; Z88.8 Allergy status to other drugs, medicaments and biological substances
CPT/HCPCS: 99283

== ENCOUNTER 2018-05-10 14:16 | Emergency (ER) | payer OTHER ==
[~2018-05-10] VITALS: Ht 157.5 cm; Wt 62.6 kg
[2018-05-10 14:27] VITALS: BP_SYST 122
[2018-05-10] MEDS ORDERED: NACL 0.9% 1,000 ML IV ONE (14:38)
[2018-05-10 14:56] LABS: BASOPHILS % (AUTO) 0.7 % (0.0-2.0); EOSINOPHILS # (AUTO) 0.2 K/uL (0.0-0.4); EOSINOPHILS % (AUTO) 2.5 % (0.0-4.0); HEMATOCRIT 39.1 % (36-48); HEMOGLOBIN 13.4 g/dL (12.0-16.0); LYMPHOCYTES # (AUTO) 1.8 K/uL (1.0-5.5); MEAN CORPUSCULAR HEMOGLOBIN 31 pg (27-31); MEAN CORPUSCULAR HGB CONC 34 % (32-36); MEAN CORPUSCULAR VOLUME 89 fL (79.0-98.0); MONOCYTES # (AUTO) 0.5 K/uL (0.0-1.0); MONOCYTES % (AUTO) 7.9 % (1.7-9.3); NEUTROPHILS # (AUTO) 4.3 K/uL (1.8-7.7); NEUTROPHILS % (AUTO) 61.9 % (40.0-70.0); PLATELET COUNT (AUTO) 364 K/uL (130-430); RED BLOOD CELL COUNT(AUTO) 4.39 MIL/uL (4.2-6.2); RED CELL DISTRIBUTION WIDTH 12.8 % (9.0-15.0); WHITE BLOOD COUNT (AUTO) 6.8 K/uL (4.8-10.8)
[2018-05-10] MEDS ORDERED: DIPHENHYDRAMINE INJ 50 MG/ML VIAL IVP ONE (15:00)
[2018-05-10] MEDS ORDERED: ONDANSETRON HCL 4 MG/2 ML VIAL IVP ONE (15:00)
[2018-05-10] MEDS ORDERED: KETOROLAC TROMETHAMINE 30 MG VIAL IVP ONE (15:00)
[2018-05-10 15:13] LABS: CALCIUM 8.7 mg/dL (8.4-11.0); CREATININE 0.78 mg/dL (0.55-1.30); POTASSIUM 3.6 mmol/L (3.5-5.1)
[2018-05-10 15:19] LABS: ALBUMIN 3.7 g/dL (3.4-4.8); TOTAL BILIRUBIN 0.3 mg/dL (0.0-1.0)
[2018-05-10 16:15] LABS: PROTHROMBIN TIME 10.4 SECS (9.5-12.5)
[2018-05-10] MEDS ORDERED: MORPHINE 4 MG/ML INJ. SYRINGE IVP ONE (17:30)
[2018-05-10 18:18] VITALS: BP_SYST 120
== END 2018-05-10 18:18 | disposition home or self-care (01) ==
LOC: SED 14:16
DX: N83.201 Unspecified ovarian cyst, right side (principal); R10.2 Pelvic and perineal pain; Z87.42 Personal history of other diseases of the female genital tract; F41.9 Anxiety disorder, unspecified; Z88.0 Allergy status to penicillin; Z88.6 Allergy status to analgesic agent; Z88.8 Allergy status to other drugs, medicaments and biological substances
CPT/HCPCS: 36415; 76830; 76857; 80053; 81025; 82150; 83690; 85025; 85610; 85730; 96361; 96374; 96375; 99284; J1200; J1885; J2270; J2405; J7030

== ENCOUNTER 2018-07-02 22:28 | Inpatient (IN) | payer OTHER ==
[~2018-07-02] VITALS: Ht 157.5 cm; Wt 64.4 kg
[2018-07-02 22:45] VITALS: BP_SYST 141
--- NOTE | 2018-07-02 22:53 | NUR ---
Patient to ER bed 04 to gown for evaluation. Side rails up. Report given to RODOLFO DE LOS SANTOS.
--- NOTE | 2018-07-02 22:57 | NUR ---
Pt AAOx4 presents to ED c/o sharp suprapubic pain x 2 hours accompanying nausea. Pt guarding abdomen during triage. Denies dysuria/vomiting/diarrhea/vaginal bleeding. No other injuries/complaints per pt/noted. Will continue to monitor.
--- NOTE | 2018-07-02 23:18 | NUR ---
ER at bedside examining patient.
--- NOTE | 2018-07-02 23:22 | NUR ---
Rechecked pts temperature, 99.3. LILA RUSSELL made aware
--- NOTE | 2018-07-02 23:24 | NUR ---
Pt assisted to bedside commode to provide urine sample
[2018-07-02] MEDS ORDERED: MORPHINE 4 MG/ML INJ. SYRINGE IVP ONE (23:30)
[2018-07-02] MEDS ORDERED: ONDANSETRON HCL 4 MG/2 ML VIAL IVP ONE (23:30)
[2018-07-02] MEDS ORDERED: NACL 0.9% 1,000 ML IV ONE ×2 (23:30→23:31)
[2018-07-02 23:42] LABS: BILIRUBIN,URINE NEGATIVE (NEGATIVE); BLOOD, URINE NEGATIVE (NEGATIVE); CLARITY/URINE CLEAR (CLEAR); COLOR,URINE YELLOW (YELLOW); GLUCOSE,URINE NEGATIVE (NEGATIVE); KETONES,URINE 1+ (NEGATIVE); LEUKOCYTE ESTERASE ,URINE NEGATIVE (NEGATIVE); NITRITE, URINE NEGATIVE (NEGATIVE); PROTEIN URINE NEGATIVE (NEGATIVE); UROBILINOGEN,URINE 0.2 (0.2-1.0)
[2018-07-02] MEDS ORDERED: KETOROLAC TROMETHAMINE 30 MG VIAL IVP ONE (23:45)
[2018-07-02 23:50] LABS: BASOPHILS # (AUTO) 0.1 K/uL (0.0-0.2); BASOPHILS % (AUTO) 0.6 % (0.0-2.0); EOSINOPHILS # (AUTO) 0.1 K/uL (0.0-0.4); HEMATOCRIT 41.9 % (36-48); HEMOGLOBIN 13.9 g/dL (12.0-16.0); LYMPHOCYTES # (AUTO) 2.3 K/uL (1.0-5.5); LYMPHOCYTES % (AUTO) 20.7 % (20.5-51.5); MEAN CORPUSCULAR HEMOGLOBIN 30 pg (27-31); MEAN CORPUSCULAR HGB CONC 33 % (32-36); MEAN CORPUSCULAR VOLUME 89 fL (79.0-98.0); MONOCYTES # (AUTO) 0.7 K/uL (0.0-1.0); MONOCYTES % (AUTO) 6.3 % (1.7-9.3); NEUTROPHILS # (AUTO) 7.8 K/uL (1.8-7.7); NEUTROPHILS % (AUTO) 71.4 % (40.0-70.0); PLATELET COUNT (AUTO) 433 K/uL (130-430); RED CELL DISTRIBUTION WIDTH 12.4 % (9.0-15.0)
[2018-07-03 00:02] LABS: CREATININE 0.61 mg/dL (0.55-1.30); POTASSIUM 3.7 mmol/L (3.5-5.1)
--- NOTE | 2018-07-03 00:05 | NUR ---
Pt medicated with zofran IVP, morphine IVP and fluids per MD order. PT placed on cardiac/O2 monitor. Tolerated well. Will cont. to monitor.
[2018-07-03 00:07] LABS: ALBUMIN 3.8 g/dL (3.4-4.8); TOTAL BILIRUBIN 0.3 mg/dL (0.0-1.0)
--- NOTE | 2018-07-03 00:33 | NUR ---
Dr. Duran at bedside performing pelvic exam and obtained wet mount specimen. FILIBERTO Miller and myself are at bedside.
[2018-07-03] MEDS ORDERED: MORPHINE 4 MG/ML INJ. SYRINGE IVP ONE ×2 (01:30→03:30)
--- NOTE | 2018-07-03 02:02 | NUR ---
Pt medicated with morphine IVP per MD order. Tolerated well. WIll cont. to monitor.
--- NOTE | 2018-07-03 02:25 | NUR ---
Pt went to radiology in stable condition.
[2018-07-03] MEDS ORDERED: NACL 0.9% 1,000 ML IV ONE (02:41)
[2018-07-03] MEDS ORDERED: metroNIDAZOLE 500 mg/NS 100 ML IV ONE (02:45)
[2018-07-03] MEDS ORDERED: LEVOFLOXACIN 500 MG/D5W 100 ML IV ONE (02:45)
--- NOTE | 2018-07-03 03:05 | NUR ---
Pt medicated with flagyl IV per MD order. Tolerated well. Will cont. to monitor.
--- NOTE | 2018-07-03 04:04 | NUR ---
Patient will be admitted to care of Dr. Che. Admitted to Tele unit. Will go to room 135. Belongings list completed. Summary report printed. Report will be given at bedside.
--- NOTE | 2018-07-03 04:22 | NUR ---
Transfer to [facility]. Licensed nurse present. IV present no signs or symptoms of infiltration.
--- NOTE | 2018-07-03 04:22 | NUR ---
ADMIT NOTE Received pt from ER to the floor with a diagnosis of pelvic inflammatory disease. Admission process initiated. patient oriented to pain management, safety and call light-teach back done.
[2018-07-03 04:30] VITALS: BP_SYST 113
--- NOTE | 2018-07-03 04:30 | NUR ---
ROUNDS PATIENT IN BED, AWAKE, ALERT, ORIENTED, VITALS STABLE. DENIES ANY PAIN AND DISCOMFORT AT THIS TIME. ADMISSION ASSESSMENT DONE AND DOCUMENTED. SEE FLOWSHEET. ORIENTED PATIENT TO HER ROOM, PHONE, AND CALL LIGHT. PLAN OF CARE DISCUSSED AND PATIENT VERBALIZED UNDERSTANDING. NEEDS ATTENDED TO. SAFETY MEASURES IN PLACED. CALL LIGHT PLACED WITHIN REACHED.
[2018-07-03] MEDS ORDERED: [UNRECOGNIZED DRUG - OTHER] PO PRN (05:45)
[2018-07-03] MEDS ORDERED: ACETAMINOPHEN PO PRN (05:45)
[2018-07-03] MEDS ORDERED: ONDANSETRON HCL 4 MG/2 ML VIAL IVP PRN (05:45)
[2018-07-03] MEDS ORDERED: TRAMADOL HCL PO PRN (05:45)
[2018-07-03] MEDS ORDERED: ACETAMINOPHEN 325 MG TABLET PO PRN (05:45)
[2018-07-03] MEDS ORDERED: LORazepam 2 MG/ML VIAL IVP PRN (05:45)
--- NOTE | 2018-07-03 05:52 | NUR ---
CONSULTATION PAGED/CALLED Reason for Consultation: PID Person Who was Notified:MARNI Consulting Physician: CANDACE Library Historian Specialty: ID Ordering Physician: Raul BURNS
[2018-07-03] MEDS: HYDROcodone/ACETAMIN 10-325 MG TAB PO PRN ×3 (06:47→20:03)
[2018-07-03] MEDS: NORMAL SALINE 5 ML DISP.SYRIN IVF SCH ×3 (06:48→21:56)
--- NOTE | 2018-07-03 06:50 | NUR ---
CLOSING NOTES PATIENT AWAKE, C/O PAIN IN THE ABDOMEN, 7/10, NORCO 10 MG PO GIVEN ORDERED PRN. ALL NEEDS ATTENDED TO. SAFETY MEASURES MAINTAINED. CALL LIGHT PLACED WITHIN REACH.
[2018-07-03 07:35] VITALS: BP_SYST 95
--- NOTE | 2018-07-03 07:37 | NUR ---
Initial note: Patient is alert, oriented x4, states still having sharp pelvic pain 8/10 but just got pain medication <1 hr ago. Will continue monitor.
--- NOTE | 2018-07-03 07:46 | NUR ---
CONSULTATION PAGED/CALLED Reason for Consultation: PID Person Who was Notified: SPOKE WITH VALENTINO FROM [employer] [phone] Consulting Physician: Tiller Man Specialty: GYNECOLOGY Ordering Physician: Raul ROMERO
--- NOTE | 2018-07-03 09:46 | NUR ---
PAIN: PATIENT STATES STILL HAS PELVIC PAIN 8/ AFTER GOT PAIN PILL. SHE REFUSED TO EAT BREAKFAST BECAUSE OF THE PAIN. DR. BURNS HAS BEEN PAGED.
--- NOTE | 2018-07-03 10:45 | NUR ---
orders: Dr. Che has called back for pain medication orders, but he is not at the office unable to use CPOE. Put telephone orders for Morphine 1 mg IVP Q 6 hrs and Benadryl 25 mg IVP Q 6 hrs PRN.
[2018-07-03] MEDS: DIPHENHYDRAMINE INJ 50 MG/ML VIAL IM PRN ×3 (10:56→23:17)
[2018-07-03] MEDS: MORPHINE 4 MG/ML INJ. SYRINGE IVP PRN ×3 (10:57→23:19)
[2018-07-03 12:41] VITALS: BP_SYST 103
--- NOTE | 2018-07-03 12:42 | NUR ---
RN round: Patient is sleeping comfortably, no sign of distress.
--- NOTE | 2018-07-03 14:30 | NUR ---
MDs round: Dr. Kent and Yane have made round and has new orders.
[2018-07-03] MEDS: metroNIDAZOLE 500 mg/NS 100 ML IV SCH ×2 (15:05→21:57)
--- NOTE | 2018-07-03 15:16 | NUR ---
RN round: Patient is resting on bed with her mother at bedside. States the pain is getting better, and try to get some sleep. Start a first dose of Flagyl IVPB as ordered.
[2018-07-03 16:29] VITALS: BP_SYST 100
--- NOTE | 2018-07-03 18:08 | NUR ---
RN ROUND: PATIENT IS SITTING ON BED , HAVING DINNER, WITH HER MOM AT BEDSIDE, STATES HER PAIN IS BETTER.
--- NOTE | 2018-07-03 18:47 | NUR ---
CLOSING NOTE: PATIENT IS STABLE, STATES FELLING HOT, BUT REFUSE TO REMOVE BLANKETS. T=98.1 PER ORAL. GIVE HER SOME OF COLD PACK AND WASHCLOTHS. SHE HAS REFUSED TO EAT THE DAY. DR. BURNS HAS BEEN PAGED.
--- NOTE | 2018-07-03 18:54 | NUR ---
NAGA GREENING ILEANA ARNOLD.
--- NOTE | 2018-07-03 19:18 | NUR ---
new orders: Dr. Che calls back and has ordered for D5 1/2 NS IVF at 100 ml/hr due to refuse to eat all day.
--- NOTE | 2018-07-03 19:20 | NUR ---
OPENING NOTE RECEIVED CARE OF PT AND BEDSIDE REPORT. PT AAOX4, REPORTING MODERATE PAIN. NO ACUTE DISTRESS NOTED, NO SOB, BREATHING IS EFFORTLESS TO ROOM AIR. NO SIGN OF INFILTRATION AT IV SITE. WILL MONITOR.
[2018-07-03 20:00] VITALS: BP_SYST 98
[2018-07-03] MEDS: D5/0.45 NS 1,000 ML IV SCH (20:02)
--- NOTE | 2018-07-03 20:03 | NUR ---
PAIN/NORCO ADMINISTERED PT REPORTING MODERATE PAIN IN PELVIC AREA. NORCO 10-325 MG ADMINISTERED. MEDICATION AND POTENTIAL SIDE EFFECTS EXPLAINED. PT VERBALIZED UNDERSTANDING. PT INSTRUCTED TO CALL FOR ASSISTANCE. WILL MONITOR.
--- NOTE | 2018-07-03 23:19 | NUR ---
PAIN/MORPHINE ADMINISTERED PT REPORTING SEVERE PAIN IN PELVIC REGION. MORPHINE 1 MG IVP ADMINISTERED. BENADRYL 25 MG IVP ADMINISTERED PER PT REQUEST. MEDICATION AND POTENTIAL SIDE EFFECTS EXPLAINED. SAFETY PRECAUTIONS OBSERVED. WILL MONITOR. Addendum: 07/04/18 at 0449 by Peggy Galaviz RN CORRECTION: BENADRYL 25 MG IM.
[2018-07-03 23:59] VITALS: BP_SYST 97
[2018-07-04] MEDS: HYDROcodone/ACETAMIN 10-325 MG TAB PO PRN ×4 (01:34→19:01)
--- NOTE | 2018-07-04 01:34 | NUR ---
PAIN/NORCO ADMINISTERED PT REPORTING MODERATE PAIN IN PELVIC REGION. NORCO 10-325 MG ADMINISTERED PO. PT INSTRUCTED TO CALL FOR ASSISTANCE. WILL MONITOR.
--- NOTE | 2018-07-04 03:28 | NUR ---
NURSING NOTE PT RESTING IN BED WITH EYES CLOSED. VISIBLE SYMMETRICAL RISE AND FALL OF CHEST. NO SIGNS OF DISTRESS. SAFETY PRECAUTIONS IN PLACE. WILL MONITOR.
[2018-07-04] MEDS: LEVOFLOXACIN 500 MG/D5W 100 ML IV SCH (04:17)
[2018-07-04] MEDS: NORMAL SALINE 5 ML DISP.SYRIN IVF SCH ×3 (05:05→22:03)
[2018-07-04] MEDS: metroNIDAZOLE 500 mg/NS 100 ML IV SCH ×3 (05:05→21:59)
[2018-07-04] MEDS: D5/0.45 NS 1,000 ML IV SCH ×3 (05:05→23:36)
[2018-07-04] MEDS: MORPHINE 4 MG/ML INJ. SYRINGE IVP PRN ×4 (05:25→23:37)
[2018-07-04] MEDS: DIPHENHYDRAMINE INJ 50 MG/ML VIAL IM PRN ×2 (05:25→11:28)
--- NOTE | 2018-07-04 05:25 | NUR ---
PAIN/MORPHINE ADMINISTERED PT REPORTING SEVERE PELVIC PAIN. MORPHINE 1 MG IVP ADMINISTERED. BENADRYL 25 MG IM ALSO ADMINISTERED PER THE PT'S REQUEST. MEDICATIONS AND POTENTIAL SIDE EFFECTS EXPLAINED. WILL MONITOR.
--- NOTE | 2018-07-04 05:45 | NUR ---
NEW IV STARTED IV STARTED IN LEFT HAND 22 GAUGE. GOOD BLOOD RETURN NOTED, FLUSHES WELL. WILL MONITOR.
[2018-07-04 06:50] LABS: BASOPHILS % (AUTO) 0.6 % (0.0-2.0); EOSINOPHILS # (AUTO) 0.2 K/uL (0.0-0.4); EOSINOPHILS % (AUTO) 2.9 % (0.0-4.0); HEMATOCRIT 36.4 % (36-48); HEMOGLOBIN 11.9 g/dL (12.0-16.0); LYMPHOCYTES # (AUTO) 2.3 K/uL (1.0-5.5); LYMPHOCYTES % (AUTO) 39.1 % (20.5-51.5); MEAN CORPUSCULAR HEMOGLOBIN 29 pg (27-31); MEAN CORPUSCULAR HGB CONC 33 % (32-36); MEAN CORPUSCULAR VOLUME 89 fL (79.0-98.0); MONOCYTES # (AUTO) 0.5 K/uL (0.0-1.0); MONOCYTES % (AUTO) 8.6 % (1.7-9.3); NEUTROPHILS # (AUTO) 2.9 K/uL (1.8-7.7); NEUTROPHILS % (AUTO) 48.8 % (40.0-70.0); PLATELET COUNT (AUTO) 344 K/uL (130-430); RED BLOOD CELL COUNT(AUTO) 4.07 MIL/uL (4.2-6.2); RED CELL DISTRIBUTION WIDTH 12.6 % (9.0-15.0); WHITE BLOOD COUNT (AUTO) 5.9 K/uL (4.8-10.8)
--- NOTE | 2018-07-04 06:54 | NUR ---
CLOSING NOTE PT RESTING IN BED WITH EYES CLOSED. NO SIGNS OF DISTRESS. IVF INFUSING ORDERED. ALL NEEDS MET DURING SHIFT. WILL ENDORSE CARE TO DAY SHIFT
[2018-07-04 07:14] LABS: ANION GAP 7 (5-15); CALCIUM 7.9 mg/dL (8.4-11.0); CHLORIDE 102 mmol/L (98-107); CREATININE 0.58 mg/dL (0.55-1.30); GLUCOSE 76 mg/dL (70-99); POTASSIUM 3.5 mmol/L (3.5-5.1); SODIUM SERUM 135 mmol/L (136-145); UREA NITROGEN, BLOOD 7 mg/dL (8-21)
[2018-07-04 07:19] LABS: GFR AFRICAN AMERICAN 169 mL/min (>90)
[2018-07-04 07:26] LABS: C-REACTIVE PROTEIN QUANT < 0.2 mg/dL (0-0.5)
[2018-07-04 08:37] LABS: ERYTHROCYTE SEDIMENTATION RATE 6 MM/HR (0-20)
[2018-07-04 09:11] VITALS: BP_SYST 94
[2018-07-04 11:11] VITALS: BP_SYST 99
--- NOTE | 2018-07-04 12:07 | NUR ---
Complete pelvic ultrasound completed
[2018-07-04 16:18] VITALS: BP_SYST 106
--- NOTE | 2018-07-04 17:30 | NUR ---
Pain/comfort Complaining of lower abdominal pain 01/09 , due pain medication given meeting vital signs parameters,safety/fall precaution initiated, needs attended.
[2018-07-04] MEDS: DIPHENHYDRAMINE INJ 50 MG/ML VIAL IVP PRN ×2 (17:36→23:37)
--- NOTE | 2018-07-04 19:30 | NUR ---
OPENING NOTE RECEIVED CARE OF PT, PT AAOX4, RESTING IN BED. NO SIGN OF DISTRESS. PT INSTRUCTED TO CALL FOR ASSISTANCE. SAFETY PRECAUTIONS IN PLACE: BED IN LOWEST POSITION, CALL LIGHT WITH PT, SIDE RAILS UPX2, BED ALARM ON, PERSONAL ITEMS WITHIN REACH. WILL MONITOR.
[2018-07-04 20:00] VITALS: BP_SYST 108
--- NOTE | 2018-07-04 21:20 | NUR ---
BEDSIDE COMMODE/STOOL SAMPLE REMINDER PT UTILIZED BEDSIDE COMMODE. STEADY GAIT NOTED. PT TOLERATED WELL. REMINDED PT ABOUT NEED FOR STOOL SAMPLE. PT VERBALIZED UNDERSTANDING, STATING THAT SHE HAS NOT HAD A BOWEL MOVEMENT YET. WILL FOLLOW UP
--- NOTE | 2018-07-04 23:37 | NUR ---
PAIN/MORPHINE ADMINISTERED PT REPORT OF SEVERE PELVIC PAIN. MORPHINE 1 MG ADMINISTERED IVP. BENADRYL 25 MG IVP ALSO ADMINISTERED PER PT REQUEST. MEDICATIONS AND POTENTIAL SIDE EFFECTS EXPLAINED. PT VERBALIZED UNDERSTANDING. SAFETY PRECAUTIONS IN PLACE. WILL MONITOR.
[2018-07-05 00:01] VITALS: BP_SYST 96
[2018-07-05 00:07] LABS: CHLAMYDIA TRACHOMATIS NAA Negative (Negative); NEISSERIA GONORRHOEAE NAA Negative (Negative)
[2018-07-05] MEDS: HYDROcodone/ACETAMIN 10-325 MG TAB PO PRN ×4 (00:33→20:22)
--- NOTE | 2018-07-05 00:33 | NUR ---
PAIN/NORCO ADMINISTERED PT REPORTING MODERATE PELVIC PAIN. NORCO 10-325 MG PO ADMINISTERED. PT EDUCATED REGARDING MEDICATION AND POTENTIAL SIDE EFFECTS. PT VERBALIZED UNDERSTANDING. SAFETY PRECAUTIONS IN PLACE. WILL MONITOR.
--- NOTE | 2018-07-05 02:15 | NUR ---
NURSING NOTE PT RESTING IN BED, WATCHING TELEVISION. NO SIGN OF ACUTE DISTRESS. BREATHING IS UNLABORED TO ROOM AIR. IVF INFUSING ORDERED. PT INSTRUCTED TO CALL FOR ASSISTANCE. SAFETY PRECAUTIONS OBSERVED. WILL MONITOR.
[2018-07-05] MEDS: LEVOFLOXACIN 500 MG/D5W 100 ML IV SCH (04:01)
--- NOTE | 2018-07-05 04:15 | NUR ---
NURSING NOTE PT RESTING IN BED COMFORTABLY. NO SIGNS OF DISTRESS. SITTING IN BED WATCHING TELEVISION. IVF INFUSING ORDERED, NO SIGN OF INFILTRATION AT IV SITE. SAFETY PRECAUTIONS IN PLACE. WILL MONITOR.
[2018-07-05] MEDS: metroNIDAZOLE 500 mg/NS 100 ML IV SCH ×3 (05:27→21:35)
[2018-07-05] MEDS: NORMAL SALINE 5 ML DISP.SYRIN IVF SCH ×3 (05:38→21:42)
[2018-07-05] MEDS: MORPHINE 4 MG/ML INJ. SYRINGE IVP PRN ×3 (05:39→18:29)
[2018-07-05] MEDS: DIPHENHYDRAMINE INJ 50 MG/ML VIAL IVP PRN ×2 (05:40→11:30)
--- NOTE | 2018-07-05 05:46 | NUR ---
PAIN/MORPHINE ADMINISTERED PT REPORTING SEVERE PELVIC PAIN, MORPHINE 1 MG IVP ADMINISTERED. BENADRYL 25 MG IVP ALSO ADMINISTERED PER PT REQUEST. PT INSTRUCTED TO CALL FOR ASSISTANCE. SAFETY PRECAUTIONS IN PLACE. WILL MONITOR.
--- NOTE | 2018-07-05 06:25 | NUR ---
CLOSING NOTE PT RESTING IN BED WITH EYES CLOSED. NO SIGN OF ACUTE DISTRESS NOTED. BREATHING IS EVEN AND SYMMETRICAL TO ROOM AIR. SAFETY PRECAUTIONS IN PLACE. ALL NEEDS MET DURING SHIFT. WILL ENDORSE CARE TO DAY SHIFT RN.
[2018-07-05 07:09] LABS: ANION GAP 5 (5-15); CALCIUM 8.1 mg/dL (8.4-11.0); CHLORIDE 102 mmol/L (98-107); CREATININE 0.54 mg/dL (0.55-1.30); GLUCOSE 91 mg/dL (70-99); POTASSIUM 3.8 mmol/L (3.5-5.1); SODIUM SERUM 135 mmol/L (136-145); UREA NITROGEN, BLOOD 8 mg/dL (8-21)
--- NOTE | 2018-07-05 07:25 | NUR ---
received patient report at the bedside from nite nurse. patient is asleep.
[2018-07-05 07:28] LABS: C-REACTIVE PROTEIN QUANT < 0.2 mg/dL (0-0.5); GFR AFRICAN AMERICAN 183 mL/min (>90)
[2018-07-05 07:34] LABS: BASOPHILS % (AUTO) 0.5 % (0.0-2.0); EOSINOPHILS # (AUTO) 0.2 K/uL (0.0-0.4); EOSINOPHILS % (AUTO) 3.4 % (0.0-4.0); HEMATOCRIT 36.6 % (36-48); HEMOGLOBIN 12.2 g/dL (12.0-16.0); LYMPHOCYTES # (AUTO) 2.1 K/uL (1.0-5.5); MEAN CORPUSCULAR HEMOGLOBIN 30 pg (27-31); MEAN CORPUSCULAR HGB CONC 33 % (32-36); MEAN CORPUSCULAR VOLUME 90 fL (79.0-98.0); MONOCYTES # (AUTO) 0.7 K/uL (0.0-1.0); MONOCYTES % (AUTO) 11.1 % (1.7-9.3); NEUTROPHILS # (AUTO) 2.9 K/uL (1.8-7.7); PLATELET COUNT (AUTO) 320 K/uL (130-430); RED BLOOD CELL COUNT(AUTO) 4.07 MIL/uL (4.2-6.2); RED CELL DISTRIBUTION WIDTH 12.5 % (9.0-15.0); WHITE BLOOD COUNT (AUTO) 5.9 K/uL (4.8-10.8)
--- NOTE | 2018-07-05 08:00 | NUR ---
received patient awake complaining of pain on the pelvic area. grade of 6. made comfortable. vitals signs taken stable. afebrile. lungs bilaterally clear. abdomen soft and non distended. has bedside commode. has iv access on the left hand #22 with D51/2 Ns at 100cc/hr infusing on well. call lights within reach. instructed to call for assistance.
--- NOTE | 2018-07-05 08:15 | NUR ---
HAD NORCO TABLET FOR PAIN PELVIC AREA GRADE OF 6. MADE COMFORTABLE ASSISTS ON ADLS.
[2018-07-05 08:17] VITALS: BP_SYST 100
[2018-07-05 08:34] LABS: ERYTHROCYTE SEDIMENTATION RATE 4 MM/HR (0-20)
--- NOTE | 2018-07-05 09:15 | NUR ---
verbalized feels better. assists on adls. watching tv
--- NOTE | 2018-07-05 10:00 | NUR ---
resting comfortable. asleep. no sob nor other distress noted.
--- NOTE | 2018-07-05 11:21 | NUR ---
dr carey came and said possible discharge in am.
[2018-07-05] MEDS: D5/0.45 NS 1,000 ML IV SCH ×2 (11:30→21:36)
--- NOTE | 2018-07-05 11:44 | NUR ---
complained of grade 8 pain on the pelvic area. morphine 1mg iv and benadryl 25 mg given and flush with 10cc normal saline.
[2018-07-05 12:16] VITALS: BP_SYST 99
--- NOTE | 2018-07-05 15:20 | NUR ---
norco tablet given po now. still with pain. made comfortable.
[2018-07-05 16:00] VITALS: BP_SYST 101
--- NOTE | 2018-07-05 16:41 | NUR ---
asleep at this time. no sob nor pain noted.
--- NOTE | 2018-07-05 18:29 | NUR ---
pain medication of morphine given at this time. zofran 4 mg iv
--- NOTE | 2018-07-05 19:15 | NUR ---
endorsed to incoming nurse Erasto DE LOS SANTOS.
--- NOTE | 2018-07-05 19:20 | NUR ---
OPENING NOTE RECEIVED CARE OF PT. PT AAOX4, SITTING UP IN BED WATCHING TELEVISION. NO ACUTE DISTRESS NOTED, IVF INFUSING ORDERED. PT INSTRUCTED TO CALL FOR ASSISTANCE, SAFETY PRECAUTIONS IN PLACE. WILL MONITOR.
[2018-07-05 20:00] VITALS: BP_SYST 100
[2018-07-06 00:15] VITALS: BP_SYST 107
[2018-07-06] MEDS: DIPHENHYDRAMINE INJ 50 MG/ML VIAL IVP PRN ×3 (01:05→13:06)
[2018-07-06] MEDS: MORPHINE 4 MG/ML INJ. SYRINGE IVP PRN ×3 (01:06→12:58)
--- NOTE | 2018-07-06 01:13 | NUR ---
SEVERE PAIN/MORPHINE ADMINISTERED PT REPORTING SEVERE PELVIC PAIN. MORPHINE 1 MG IVP ADMINISTERED. BENADRYL 25 MG IVP ALSO ADMINISTERED PER PT REQUEST. MEDICATIONS EXPLAINED TO PT. SAFETY PRECAUTIONS IN PLACE. WILL MONITOR.
--- NOTE | 2018-07-06 02:45 | NUR ---
RESTING PT RESTING IN BED WITH EYES CLOSED. VISIBLE SYMMETRICAL RISE AND FALL OF CHEST. IVF INFUSING ORDERED. NO SIGN OF INFILTRATION AT IV SITE. NO ACUTE DISTRESS, APPEARS COMFORTABLE. SAFETY PRECAUTIONS OBSERVED. WILL MONITOR.
[2018-07-06] MEDS: LEVOFLOXACIN 500 MG/D5W 100 ML IV SCH (04:16)
[2018-07-06] MEDS: HYDROcodone/ACETAMIN 10-325 MG TAB PO PRN ×2 (04:24→11:03)
--- NOTE | 2018-07-06 04:28 | NUR ---
MODERATE PAIN/NORCO ADMINISTERED PT REPORTING MODERATE PELVIC PAIN. NORCO 10-325 MG PO ADMINISTERED. PT EDUCATED REGARDING MEDICATION AND POTENTIAL SIDE EFFECTS. SAFETY PRECAUTIONS IN PLACE. WILL MONITOR.
[2018-07-06] MEDS: metroNIDAZOLE 500 mg/NS 100 ML IV SCH ×2 (05:11→12:58)
[2018-07-06] MEDS: D5/0.45 NS 1,000 ML IV SCH (05:13)
[2018-07-06] MEDS: NORMAL SALINE 5 ML DISP.SYRIN IVF SCH (05:20)
--- NOTE | 2018-07-06 05:30 | NUR ---
RESTING PT RESTING IN BED. EYES ARE CLOSED, VISIBLE RISE AND FALL OF CHEST. PT APPEARS COMFORTABLE. WILL MONITOR.
--- NOTE | 2018-07-06 06:45 | NUR ---
CLOSING NOTE PT REPORTING PAIN, EDUCATED PT ABOUT PRN PAIN MEDICATION SCHEDULE. PT VERBALIZED UNDERSTANDING. PT IN BED, AAOX4, IVF INFUSING ORDERED. NO INFILTRATION AT IV SITE. SAFETY PRECAUTIONS IN PLACE. ALL NEEDS MET DURING SHIFT. WILL ENDORSE CARE TO DAY SHIFT RN.
[2018-07-06 06:47] LABS: BASOPHILS % (AUTO) 0.5 % (0.0-2.0); EOSINOPHILS # (AUTO) 0.2 K/uL (0.0-0.4); EOSINOPHILS % (AUTO) 2.7 % (0.0-4.0); HEMATOCRIT 38.3 % (36-48); HEMOGLOBIN 12.5 g/dL (12.0-16.0); LYMPHOCYTES # (AUTO) 1.9 K/uL (1.0-5.5); LYMPHOCYTES % (AUTO) 33.6 % (20.5-51.5); MEAN CORPUSCULAR HEMOGLOBIN 30 pg (27-31); MEAN CORPUSCULAR HGB CONC 33 % (32-36); MEAN CORPUSCULAR VOLUME 91 fL (79.0-98.0); MONOCYTES # (AUTO) 0.6 K/uL (0.0-1.0); MONOCYTES % (AUTO) 9.8 % (1.7-9.3); NEUTROPHILS # (AUTO) 2.9 K/uL (1.8-7.7); NEUTROPHILS % (AUTO) 53.4 % (40.0-70.0); PLATELET COUNT (AUTO) 356 K/uL (130-430); RED BLOOD CELL COUNT(AUTO) 4.23 MIL/uL (4.2-6.2); RED CELL DISTRIBUTION WIDTH 12.4 % (9.0-15.0); WHITE BLOOD COUNT (AUTO) 5.6 K/uL (4.8-10.8)
[2018-07-06 06:59] LABS: ANION GAP 7 (5-15); CHLORIDE 100 mmol/L (98-107); CREATININE 0.67 mg/dL (0.55-1.30); GLUCOSE 82 mg/dL (70-99); POTASSIUM 3.7 mmol/L (3.5-5.1); SODIUM SERUM 134 mmol/L (136-145); UREA NITROGEN, BLOOD 6 mg/dL (8-21)
[2018-07-06 07:17] LABS: C-REACTIVE PROTEIN QUANT < 0.2 mg/dL (0-0.5); GFR AFRICAN AMERICAN 143 mL/min (>90)
--- NOTE | 2018-07-06 07:25 | NUR ---
C/O SEVERE PAIN AND ITCHING Patient was given PRN Morphine and Benadryl for complaints of severe pain and itching. See EMAR for details. Educated pt. on medication and potential side effects. Encouraged use of call light for assistance. Endorsed to FILIBERTO Arshad to reassess on EMAR.
[2018-07-06 08:00] VITALS: BP_SYST 96
--- NOTE | 2018-07-06 08:00 | NUR ---
initial notes rec patient asleep but arousable to stimuli. ivf infusing well on the l hand. no infiltration noted. denies pain at this time. bed to the lowest position and side rails up ad locked .call light within reached and knows when to call for assistance.
[2018-07-06 08:56] LABS: ERYTHROCYTE SEDIMENTATION RATE 5 MM/HR (0-20)
--- NOTE | 2018-07-06 10:00 | NUR ---
rounds continue to sleep soundly , call light withn reached and resting comfortably. no sob noted.
[2018-07-06] MEDS ORDERED: HYDR-3925 PO (12:34)
[2018-07-06] MEDS ORDERED: METR500T PO (12:34)
[2018-07-06] MEDS ORDERED: LEVO250T2 PO (12:34)
[2018-07-06 12:38] VITALS: BP_SYST 98
[2018-07-06 14:42] VITALS: BP_SYST 106
--- NOTE | 2018-07-06 15:04 | NUR ---
Social Service Note: SENIOR TECHNICAL MANAGER received call from nurse asking for letter confirming pt's admission/discharge dates. SENIOR TECHNICAL MANAGER provided pt's nurse with a letter for pt.
== END 2018-07-06 15:45 | disposition home or self-care (01) | DRG 531 ==
LOC: SED 22:28 → STU 07-03 04:01 → SMU 07-03 04:22
PROVIDERS: ADMIT Preventive Medicine Preventive Medicine/Occupational Environmental Medicine; ATTEND Preventive Medicine Preventive Medicine/Occupational Environmental Medicine
DX: N73.8 Other specified female pelvic inflammatory diseases (principal); F33.2 Major depressive disorder, recurrent severe without psychotic features; D47.3 Essential (hemorrhagic) thrombocythemia; A08.4 Viral intestinal infection, unspecified; F41.9 Anxiety disorder, unspecified; K52.9 Noninfective gastroenteritis and colitis, unspecified; N83.519 Torsion of ovary and ovarian pedicle, unspecified side; N80.1 Endometriosis of ovary; Z88.0 Allergy status to penicillin; Z88.1 Allergy status to other antibiotic agents; Z88.8 Allergy status to other drugs, medicaments and biological substances
CPT/HCPCS: 36415; 76830-TC; 76857; 80048; 80053; 81003; 83605; 85025; 85651-TC; 86140; 87040-TC; 87210-TC; 87491; 87591; 96365; 96367; 96375; 96376; 99285; J1200; J1956; J2270; J2405; J3490

== ENCOUNTER 2018-08-20 22:03 | Emergency (ER) | payer OTHER ==
[~2018-08-20] VITALS: Ht 157.5 cm; Wt 55.8 kg
[~2018-08-20 22:03] MED LIST changes: +HYDR-3925 PO; +LEVO250T2 PO; +METR500T PO; +TRAM-350 PO; -TRAM1TAB33 PO
[2018-08-20 23:18] VITALS: BP_SYST 121
--- NOTE | 2018-08-21 02:04 | NUR ---
Called in, no answer
[2018-08-21] MEDS ORDERED: NACL 0.9% 1,000 ML IV ONE (04:29)
== END 2018-08-21 02:04 | disposition left against medical advice (07) ==
LOC: SED 22:03
DX: R10.32 Left lower quadrant pain (principal); Z53.21 Procedure and treatment not carried out due to patient leaving prior to being seen by health care provider

== ENCOUNTER 2018-09-21 10:10 | Emergency (ER) | payer OTHER ==
[~2018-09-21] VITALS: Ht 157.5 cm; Wt 63.5 kg
[2018-09-21] MEDS ORDERED: NACL 0.9% 1,000 ML IV ONE (10:16)
[2018-09-21 10:25] VITALS: BP_SYST 118
[2018-09-21] MEDS ORDERED: ONDANSETRON HCL 4 MG/2 ML VIAL IVP ONE (10:30)
--- NOTE | 2018-09-21 10:30 | NUR ---
# 20 gauge angiocath placed to RT AC. Use of asceptic technique. Opsite placed over site. Blood return noted. Blood for lab drawn from site. Flushed with 10 cc of normal saline. No evidence of infiltration noted. Patient tolerated well.
--- NOTE | 2018-09-21 10:32 | NUR ---
Patient to ER bed 3 to gown for evaluation. Side rails up. Report given to Kristopher DE LOS SANTOS.
--- NOTE | 2018-09-21 10:40 | NUR ---
Patient comes to ER with complaint of pelvic pain. Patient was brought in my mother in personal vehicle, AOx4, verbal and ambulatory. Patient denier painful urination, denies discharge. No other complaint or injury at this time.
--- NOTE | 2018-09-21 10:40 | NUR ---
DR CARTER at bedside for ER evaluation
[2018-09-21] MEDS ORDERED: MORPHINE 4 MG/ML INJ. SYRINGE IVP ONE ×2 (10:45→12:00)
[2018-09-21 11:06] LABS: BASOPHILS # (AUTO) 0.1 K/uL (0.0-0.2); BASOPHILS % (AUTO) 0.8 % (0.0-2.0); EOSINOPHILS # (AUTO) 0.1 K/uL (0.0-0.4); EOSINOPHILS % (AUTO) 2.1 % (0.0-4.0); HEMATOCRIT 43.1 % (36-48); HEMOGLOBIN 14.1 g/dL (12.0-16.0); LYMPHOCYTES # (AUTO) 1.8 K/uL (1.0-5.5); LYMPHOCYTES % (AUTO) 28.3 % (20.5-51.5); MEAN CORPUSCULAR HEMOGLOBIN 30 pg (27-31); MEAN CORPUSCULAR HGB CONC 33 % (32-36); MEAN CORPUSCULAR VOLUME 91 fL (79.0-98.0); MONOCYTES # (AUTO) 0.5 K/uL (0.0-1.0); MONOCYTES % (AUTO) 8.5 % (1.7-9.3); NEUTROPHILS # (AUTO) 3.9 K/uL (1.8-7.7); NEUTROPHILS % (AUTO) 60.3 % (40.0-70.0); PLATELET COUNT (AUTO) 359 K/uL (130-430); RED BLOOD CELL COUNT(AUTO) 4.76 MIL/uL (4.2-6.2); RED CELL DISTRIBUTION WIDTH 13.4 % (9.0-15.0); WHITE BLOOD COUNT (AUTO) 6.4 K/uL (4.8-10.8)
[2018-09-21 11:09] LABS: CALCIUM 8.8 mg/dL (8.4-11.0); CREATININE 0.58 mg/dL (0.55-1.30); POTASSIUM 3.8 mmol/L (3.5-5.1)
[2018-09-21 11:20] LABS: INR 0.9 (0.8-1.2); PROTHROMBIN TIME 9.4 SECS (9.5-12.5)
[2018-09-21 11:21] LABS: ALBUMIN 3.7 g/dL (3.4-4.8); TOTAL BILIRUBIN 0.3 mg/dL (0.0-1.0)
[2018-09-21 11:32] LABS: BILIRUBIN,URINE NEGATIVE (NEGATIVE); BLOOD, URINE NEGATIVE (NEGATIVE); CLARITY/URINE CLEAR (CLEAR); COLOR,URINE YELLOW (YELLOW); GLUCOSE,URINE NEGATIVE (NEGATIVE); KETONES,URINE NEGATIVE (NEGATIVE); LEUKOCYTE ESTERASE ,URINE NEGATIVE (NEGATIVE); NITRITE, URINE NEGATIVE (NEGATIVE); PH,URINE 6.5 (5.0-8.0); PROTEIN URINE NEGATIVE (NEGATIVE); UROBILINOGEN,URINE 0.2 (0.2-1.0)
--- NOTE | 2018-09-21 12:57 | NUR ---
Medicated per MD orders. IVF infusing with no s/s of infiltration at this time. Will cont to monitor
[2018-09-21 14:05] VITALS: BP_SYST 120
--- NOTE | 2018-09-21 14:06 | NUR ---
Patient given written and verbal discharge instructions and verbalizes understanding. ER MD discussed with patient the results and treatment provided. Patient in stable condition. ID arm band removed. IV catheter removed intact and dressing applied, no active bleeding. Rx of Tylenol #3 and Zofran given. Patient educated on female pubic pain and pain management and to follow up with PMD. Pain Scale 0/10. Opportunity for questions provided and answered. Medication side effect fact sheet provided.
== END 2018-09-21 14:06 | disposition home or self-care (01) ==
LOC: SED 10:10
DX: R10.2 Pelvic and perineal pain (principal); Z87.19 Personal history of other diseases of the digestive system; Z87.42 Personal history of other diseases of the female genital tract; F41.9 Anxiety disorder, unspecified; Z88.0 Allergy status to penicillin; Z88.6 Allergy status to analgesic agent; Z88.8 Allergy status to other drugs, medicaments and biological substances; Z79.899 Other long term (current) drug therapy
CPT/HCPCS: 36415; 71045; 74176; 80053; 81003; 81025; 82150; 83605; 83690; 85025; 85610; 85730; 87040; 96374; 96375; 96376; 99284; J2270; J2405; J7030

== ENCOUNTER 2018-09-22 13:33 | Emergency (ER) | payer OTHER ==
[~2018-09-22] VITALS: Ht 157.5 cm; Wt 63.5 kg
[2018-09-22 13:40] VITALS: BP_SYST 133
--- NOTE | 2018-09-22 14:02 | NUR ---
Patient to ER bed 4 to gown for evaluation. Side rails up. Report given to Joe DE LOS SANTOS.
--- NOTE | 2018-09-22 14:05 | NUR ---
Patient is awake, alert, and oriented x4. She states she was in yesterday for abdominal pain and it has not gotten better. Patient presents with sharp left flank pain radiating down to the hip, 01/09.
[2018-09-22] MEDS ORDERED: NACL 0.9% 1,000 ML IV ONE (14:14)
--- NOTE | 2018-09-22 14:14 | NUR ---
ER Dr. eSals at bedside examining patient.
[2018-09-22] MEDS ORDERED: MORPHINE 4 MG/ML INJ. SYRINGE IVP ONE ×2 (14:15→16:30)
[2018-09-22] MEDS ORDERED: ONDANSETRON HCL 4 MG/2 ML VIAL IVP ONE ×2 (14:15→16:30)
[2018-09-22 14:42] LABS: BASOPHILS # (AUTO) 0.1 K/uL (0.0-0.2); EOSINOPHILS # (AUTO) 0.1 K/uL (0.0-0.4); EOSINOPHILS % (AUTO) 1.2 % (0.0-4.0); HEMATOCRIT 39.2 % (36-48); LYMPHOCYTES # (AUTO) 1.6 K/uL (1.0-5.5); LYMPHOCYTES % (AUTO) 20.7 % (20.5-51.5); MEAN CORPUSCULAR HEMOGLOBIN 30 pg (27-31); MEAN CORPUSCULAR HGB CONC 33 % (32-36); MEAN CORPUSCULAR VOLUME 90 fL (79.0-98.0); MONOCYTES # (AUTO) 0.5 K/uL (0.0-1.0); MONOCYTES % (AUTO) 6.2 % (1.7-9.3); NEUTROPHILS # (AUTO) 5.6 K/uL (1.8-7.7); NEUTROPHILS % (AUTO) 70.9 % (40.0-70.0); PLATELET COUNT (AUTO) 331 K/uL (130-430); RED BLOOD CELL COUNT(AUTO) 4.38 MIL/uL (4.2-6.2); RED CELL DISTRIBUTION WIDTH 13.2 % (9.0-15.0); WHITE BLOOD COUNT (AUTO) 7.9 K/uL (4.8-10.8)
[2018-09-22 14:55] LABS: CALCIUM 8.7 mg/dL (8.4-11.0); CREATININE 0.62 mg/dL (0.55-1.30)
[2018-09-22 14:58] LABS: INR 0.9 (0.8-1.2); PROTHROMBIN TIME 9.7 SECS (9.5-12.5)
[2018-09-22 15:00] LABS: ALBUMIN 3.6 g/dL (3.4-4.8); TOTAL BILIRUBIN 0.5 mg/dL (0.0-1.0)
--- NOTE | 2018-09-22 15:19 | NUR ---
PATIENT LEAVING TO [facility] SOUND IN WHEELCHAIR.
--- NOTE | 2018-09-22 15:50 | NUR ---
PATIENT BACK FROM [facility]
--- NOTE | 2018-09-22 15:56 | NUR ---
PATIENT STILL COMPLAINING OF NAUSEA AND PAIN. MD MADE AWARE.
--- NOTE | 2018-09-22 16:20 | NUR ---
Raul Antunez placed call to Dr. Redmond. Dr. Seals reviewed this pt's chart with Dr. Redmond. Dr. Redmond advised to call FLOORWORKER LASTING (family consultant-Dr. Sanders). Phone call was then placed to Dr. Sanders.
--- NOTE | 2018-09-22 16:42 | NUR ---
Raul Antunez placed call to building construction teacher MEAT AND SEAFOOD MANAGER (Dr. Sanders). Per Tiesha, Dr. Sanders will return call after seeing pt's at his practice (approx. 20 min).
--- NOTE | 2018-09-22 17:41 | NUR ---
DR SULTANA MADE AWARE OF PAITENT'S PAIN AND BLOOD PRESSURE.
--- NOTE | 2018-09-22 19:04 | NUR ---
Patient given written and verbal discharge instructions and verbalizes understanding. ER MD discussed with patient the results and treatment provided. Patient in stable condition. ID arm band removed. IV catheter removed intact and dressing applied, no active bleeding. Rx of TYLENOL, TRAMADOL, ZOFRAN, AND COLACE given. Patient educated on pain management and to follow up with PMD. Pain Scale 6/10 TOLERABLE. Opportunity for questions provided and answered. Medication side effect fact sheet provided.
[2018-09-22 19:06] VITALS: BP_SYST 105
== END 2018-09-22 19:06 | disposition home or self-care (01) ==
LOC: SED 13:33
DX: R10.2 Pelvic and perineal pain (principal); F41.9 Anxiety disorder, unspecified; Z88.0 Allergy status to penicillin; Z88.6 Allergy status to analgesic agent; Z88.8 Allergy status to other drugs, medicaments and biological substances; Z79.899 Other long term (current) drug therapy
CPT/HCPCS: 36415; 76830; 76857; 80053; 81002; 81025; 83690; 84702; 85025; 85610; 85730; 87210; 96374; 96375; 96376; 99284; J2270; J2405; J7030; J7120

== ENCOUNTER 2018-10-06 17:31 | Emergency (ER) | payer OTHER ==
[~2018-10-06] VITALS: Ht 157.5 cm; Wt 70.8 kg
[2018-10-06 17:40] VITALS: BP_SYST 156
[2018-10-06] MEDS ORDERED: IBUPROFEN 800 MG TABLET PO ONE (18:00)
[2018-10-06] MEDS ORDERED: HYDROcodone/ACETAMIN 10-325 MG TAB PO ONE (18:00)
[2018-10-06 18:20] LABS: BASOPHILS # (AUTO) 0.1 K/uL (0.0-0.2); BASOPHILS % (AUTO) 0.6 % (0.0-2.0); EOSINOPHILS # (AUTO) 0.2 K/uL (0.0-0.4); EOSINOPHILS % (AUTO) 2.5 % (0.0-4.0); HEMATOCRIT 37.2 % (36-48); HEMOGLOBIN 12.4 g/dL (12.0-16.0); LYMPHOCYTES % (AUTO) 24.6 % (20.5-51.5); MEAN CORPUSCULAR HEMOGLOBIN 30 pg (27-31); MEAN CORPUSCULAR HGB CONC 33 % (32-36); MEAN CORPUSCULAR VOLUME 90 fL (79.0-98.0); MONOCYTES # (AUTO) 0.6 K/uL (0.0-1.0); MONOCYTES % (AUTO) 7.1 % (1.7-9.3); NEUTROPHILS # (AUTO) 5.3 K/uL (1.8-7.7); NEUTROPHILS % (AUTO) 65.2 % (40.0-70.0); PLATELET COUNT (AUTO) 357 K/uL (130-430); RED BLOOD CELL COUNT(AUTO) 4.15 MIL/uL (4.2-6.2); RED CELL DISTRIBUTION WIDTH 13.5 % (9.0-15.0); WHITE BLOOD COUNT (AUTO) 8.1 K/uL (4.8-10.8)
[2018-10-06 18:25] LABS: CALCIUM 8.4 mg/dL (8.4-11.0); CREATININE 0.65 mg/dL (0.55-1.30); POTASSIUM 3.7 mmol/L (3.5-5.1)
[2018-10-06 18:30] LABS: INR 0.9 (0.8-1.2); PROTHROMBIN TIME 9.1 SECS (9.5-12.5)
[2018-10-06 18:32] LABS: ALBUMIN 3.4 g/dL (3.4-4.8); TOTAL BILIRUBIN 0.1 mg/dL (0.0-1.0)
[2018-10-06] MEDS ORDERED: MORPHINE SULFATE 10 MG/ML VIAL IM ONE (19:00)
[2018-10-06] MEDS ORDERED: MORPHINE 4 MG/ML INJ. SYRINGE IVP ONE (21:15)
[2018-10-06] MEDS ORDERED: MORPHINE 4 MG/ML INJ. SYRINGE IM ONE (21:45)
[2018-10-06 22:01] VITALS: BP_SYST 138
== END 2018-10-06 22:01 | disposition home or self-care (01) ==
LOC: SED 17:31
DX: R10.2 Pelvic and perineal pain (principal); R03.0 Elevated blood-pressure reading, without diagnosis of hypertension; Z88.0 Allergy status to penicillin; Z88.6 Allergy status to analgesic agent; Z88.8 Allergy status to other drugs, medicaments and biological substances; Z79.899 Other long term (current) drug therapy
CPT/HCPCS: 36415; 74018; 76830; 76857; 80053; 81002; 81025; 82150; 83605; 83690; 84703; 85025; 85610; 85730; 96372; 99284; J2270 ×2

== ENCOUNTER 2018-11-23 15:48 | Emergency (ER) | payer OTHER ==
[~2018-11-23] VITALS: Ht 157.5 cm; Wt 73.5 kg
[2018-11-23 16:23] VITALS: BP_SYST 113
[2018-11-23] MEDS ORDERED: MORPHINE 4 MG/ML INJ. SYRINGE IVP ONE (17:30)
[2018-11-23] MEDS ORDERED: METOCLOPRAMIDE HCL 10 MG/2 ML VIAL IVP ONE (17:30)
[2018-11-23 17:54] LABS: BASOPHILS % (AUTO) 0.6 % (0.0-2.0); EOSINOPHILS # (AUTO) 0.1 K/uL (0.0-0.4); EOSINOPHILS % (AUTO) 0.9 % (0.0-4.0); HEMOGLOBIN 13.4 g/dL (12.0-16.0); LYMPHOCYTES # (AUTO) 1.7 K/uL (1.0-5.5); LYMPHOCYTES % (AUTO) 21.9 % (20.5-51.5); MEAN CORPUSCULAR HEMOGLOBIN 30 pg (27-31); MEAN CORPUSCULAR HGB CONC 34 % (32-36); MEAN CORPUSCULAR VOLUME 89 fL (79.0-98.0); MONOCYTES # (AUTO) 0.7 K/uL (0.0-1.0); MONOCYTES % (AUTO) 9.3 % (1.7-9.3); NEUTROPHILS # (AUTO) 5.1 K/uL (1.8-7.7); NEUTROPHILS % (AUTO) 67.3 % (40.0-70.0); PLATELET COUNT (AUTO) 354 K/uL (130-430); RED CELL DISTRIBUTION WIDTH 13.5 % (9.0-15.0); WHITE BLOOD COUNT (AUTO) 7.6 K/uL (4.8-10.8)
[2018-11-23 18:07] LABS: POTASSIUM 3.8 mmol/L (3.5-5.1)
[2018-11-23 18:08] LABS: ALBUMIN 3.7 g/dL (3.4-4.8); CALCIUM 9.3 mg/dL (8.4-11.0); CREATININE 0.6 mg/dL (0.55-1.30); TOTAL BILIRUBIN 0.4 mg/dL (0.0-1.0)
[2018-11-23 19:07] VITALS: BP_SYST 113
== END 2018-11-23 19:07 | disposition home or self-care (01) ==
LOC: SED 15:48
DX: R10.2 Pelvic and perineal pain (principal); G89.29 Other chronic pain; F41.9 Anxiety disorder, unspecified; Z88.0 Allergy status to penicillin; Z88.6 Allergy status to analgesic agent; Z88.8 Allergy status to other drugs, medicaments and biological substances; Z79.899 Other long term (current) drug therapy
CPT/HCPCS: 36415; 80053; 81025; 85025; 96374; 96375; 99283; J2270; J2765

== ENCOUNTER 2018-11-25 22:11 | Emergency (ER) | payer OTHER ==
[~2018-11-25] VITALS: Ht 157.5 cm; Wt 73.5 kg
[2018-11-25 22:21] VITALS: BP_SYST 124
[2018-11-25] MEDS ORDERED: MORPHINE 4 MG/ML INJ. SYRINGE IVP ONE (23:30)
[2018-11-25] MEDS ORDERED: NACL 0.9% 1,000 ML IV ONE (23:30)
[2018-11-25 23:43] LABS: BASOPHILS % (AUTO) 0.4 % (0.0-2.0); EOSINOPHILS # (AUTO) 0.2 K/uL (0.0-0.4); EOSINOPHILS % (AUTO) 2.4 % (0.0-4.0); HEMATOCRIT 38.9 % (36-48); HEMOGLOBIN 13.3 g/dL (12.0-16.0); LYMPHOCYTES # (AUTO) 2.8 K/uL (1.0-5.5); LYMPHOCYTES % (AUTO) 31.6 % (20.5-51.5); MEAN CORPUSCULAR HEMOGLOBIN 30 pg (27-31); MEAN CORPUSCULAR HGB CONC 34 % (32-36); MEAN CORPUSCULAR VOLUME 89 fL (79.0-98.0); MONOCYTES # (AUTO) 0.7 K/uL (0.0-1.0); MONOCYTES % (AUTO) 7.6 % (1.7-9.3); NEUTROPHILS # (AUTO) 5.1 K/uL (1.8-7.7); PLATELET COUNT (AUTO) 381 K/uL (130-430); RED BLOOD CELL COUNT(AUTO) 4.36 MIL/uL (4.2-6.2); RED CELL DISTRIBUTION WIDTH 13.4 % (9.0-15.0); WHITE BLOOD COUNT (AUTO) 8.8 K/uL (4.8-10.8)
[2018-11-26] LABS: INR 0.9 (0.8-1.2); PROTHROMBIN TIME 9.4 SECS (9.5-12.5)
[2018-11-26 00:10] LABS: CALCIUM 9.3 mg/dL (8.4-11.0); CREATININE 0.78 mg/dL (0.55-1.30); POTASSIUM 3.9 mmol/L (3.5-5.1)
[2018-11-26 00:16] LABS: ALBUMIN 3.8 g/dL (3.4-4.8); TOTAL BILIRUBIN 0.2 mg/dL (0.0-1.0)
[2018-11-26] MEDS ORDERED: MORPHINE 4 MG/ML INJ. SYRINGE IVP ONE (01:00)
[2018-11-26 01:15] VITALS: BP_SYST 116
== END 2018-11-26 01:15 | disposition home or self-care (01) ==
LOC: SED 22:11
DX: N80.1 Endometriosis of ovary (principal); F41.9 Anxiety disorder, unspecified; Z79.899 Other long term (current) drug therapy; Z88.0 Allergy status to penicillin; Z88.6 Allergy status to analgesic agent; Z88.8 Allergy status to other drugs, medicaments and biological substances
CPT/HCPCS: 36415; 80053; 85025; 85610; 85730; 96374; 96376; 99283; J2270 ×2; J7030

== ENCOUNTER 2018-11-27 10:34 | Emergency (ER) | payer OTHER ==
[~2018-11-27] VITALS: Ht 157.5 cm; Wt 75.3 kg
[2018-11-27 10:46] VITALS: BP_SYST 121
[2018-11-27] MEDS ORDERED: ONDANSETRON HCL 4 MG/2 ML VIAL IVP ONE (11:15)
[2018-11-27] MEDS ORDERED: MORPHINE 4 MG/ML INJ. SYRINGE IVP ONE ×2 (11:15→14:00)
[2018-11-27 11:47] LABS: BASOPHILS % (AUTO) 0.6 % (0.0-2.0); EOSINOPHILS # (AUTO) 0.2 K/uL (0.0-0.4); HEMATOCRIT 38.3 % (36-48); HEMOGLOBIN 12.7 g/dL (12.0-16.0); LYMPHOCYTES # (AUTO) 1.6 K/uL (1.0-5.5); LYMPHOCYTES % (AUTO) 24.6 % (20.5-51.5); MEAN CORPUSCULAR HEMOGLOBIN 30 pg (27-31); MEAN CORPUSCULAR HGB CONC 33 % (32-36); MEAN CORPUSCULAR VOLUME 89 fL (79.0-98.0); MONOCYTES # (AUTO) 0.5 K/uL (0.0-1.0); MONOCYTES % (AUTO) 8.5 % (1.7-9.3); NEUTROPHILS % (AUTO) 63.3 % (40.0-70.0); PLATELET COUNT (AUTO) 341 K/uL (130-430); RED BLOOD CELL COUNT(AUTO) 4.29 MIL/uL (4.2-6.2); RED CELL DISTRIBUTION WIDTH 13.1 % (9.0-15.0); WHITE BLOOD COUNT (AUTO) 6.3 K/uL (4.8-10.8)
[2018-11-27 11:48] LABS: CREATININE 0.56 mg/dL (0.55-1.30)
[2018-11-27 11:54] LABS: ALBUMIN 3.4 g/dL (3.4-4.8); TOTAL BILIRUBIN 0.2 mg/dL (0.0-1.0)
[2018-11-27 13:45] VITALS: BP_SYST 118
== END 2018-11-27 13:45 | disposition home or self-care (01) ==
LOC: SED 10:34
DX: N80.1 Endometriosis of ovary (principal); N83.202 Unspecified ovarian cyst, left side; F41.9 Anxiety disorder, unspecified; Z79.899 Other long term (current) drug therapy; Z88.0 Allergy status to penicillin; Z88.6 Allergy status to analgesic agent; Z88.8 Allergy status to other drugs, medicaments and biological substances
CPT/HCPCS: 36415; 76830; 76857; 80053; 81025; 83690; 85025; 96374; 96375; 96376; 99284; J2270; J2405

== ENCOUNTER 2018-11-28 19:50 | Inpatient (IN) | payer OTHER ==
[~2018-11-28] VITALS: Ht 157.5 cm; Wt 75.3 kg
[2018-11-28 20:13] VITALS: BP_SYST 113
[2018-11-28] MEDS ORDERED: ONDANSETRON HCL 4 MG/2 ML VIAL IVP ONE (21:00)
[2018-11-28] MEDS ORDERED: MORPHINE 4 MG/ML INJ. SYRINGE IVP ONE ×2 (21:00→22:30)
[2018-11-28 21:37] LABS: BASOPHILS # (AUTO) 0.1 K/uL (0.0-0.2); BASOPHILS % (AUTO) 0.7 % (0.0-2.0); EOSINOPHILS # (AUTO) 0.2 K/uL (0.0-0.4); EOSINOPHILS % (AUTO) 2.2 % (0.0-4.0); HEMATOCRIT 40.5 % (36-48); HEMOGLOBIN 13.4 g/dL (12.0-16.0); LYMPHOCYTES # (AUTO) 1.9 K/uL (1.0-5.5); LYMPHOCYTES % (AUTO) 24.5 % (20.5-51.5); MEAN CORPUSCULAR HEMOGLOBIN 30 pg (27-31); MEAN CORPUSCULAR HGB CONC 33 % (32-36); MEAN CORPUSCULAR VOLUME 89 fL (79.0-98.0); MONOCYTES # (AUTO) 0.6 K/uL (0.0-1.0); MONOCYTES % (AUTO) 7.1 % (1.7-9.3); NEUTROPHILS # (AUTO) 5.2 K/uL (1.8-7.7); NEUTROPHILS % (AUTO) 65.5 % (40.0-70.0); PLATELET COUNT (AUTO) 365 K/uL (130-430); RED BLOOD CELL COUNT(AUTO) 4.54 MIL/uL (4.2-6.2); RED CELL DISTRIBUTION WIDTH 13.2 % (9.0-15.0); WHITE BLOOD COUNT (AUTO) 7.9 K/uL (4.8-10.8)
[2018-11-28 21:45] LABS: CALCIUM 9.2 mg/dL (8.4-11.0); CREATININE 0.71 mg/dL (0.55-1.30); POTASSIUM 3.6 mmol/L (3.5-5.1)
[2018-11-28 21:49] LABS: ALBUMIN 3.5 g/dL (3.4-4.8); TOTAL BILIRUBIN 0.2 mg/dL (0.0-1.0)
[2018-11-28] MEDS ORDERED: NACL 0.9% 1,000 ML IV ONE (22:00)
[2018-11-28] MEDS ORDERED: METOCLOPRAMIDE HCL 10 MG/2 ML VIAL IVP ONE (22:30)
[2018-11-28] MEDS ORDERED: DEXAMETHASONE SOD PHOSPHATE 4 MG/ML VIAL IVP ONE (22:30)
[2018-11-29] MEDS ORDERED: DIPHENHYDRAMINE INJ 50 MG/ML VIAL IVP ONE (00:15)
[2018-11-29] MEDS ORDERED: MORPHINE 4 MG/ML INJ. SYRINGE IVP ONE (04:45)
[2018-11-29 06:22] VITALS: BP_SYST 97
[2018-11-29 08:00] VITALS: BP_SYST 99
[2018-11-29] MEDS ORDERED: ONDANSETRON HCL 4 MG/2 ML VIAL IVP PRN (08:45)
[2018-11-29] MEDS ORDERED: MORPHINE 4 MG/ML INJ. SYRINGE IVP PRN (08:45)
[2018-11-29] MEDS ORDERED: GOLYTELY / COLYTE SOLUTION 4 LITERS PO ONE (11:30)
[2018-11-29 12:43] VITALS: BP_SYST 93
[2018-11-29] MEDS: DIPHENHYDRAMINE INJ 50 MG/ML VIAL IVP PRN ×3 (13:03→21:14)
[2018-11-29 16:17] VITALS: BP_SYST 100
[2018-11-30 00:29] VITALS: BP_SYST 86
[2018-11-30] MEDS: DIPHENHYDRAMINE INJ 50 MG/ML VIAL IVP PRN ×5 (01:28→20:06)
[2018-11-30 08:28] VITALS: BP_SYST 92
[2018-11-30 12:33] VITALS: BP_SYST 92
[2018-11-30 16:30] VITALS: BP_SYST 95
[2018-11-30 19:47] VITALS: BP_SYST 120
[2018-12-01] MEDS: DIPHENHYDRAMINE INJ 50 MG/ML VIAL IVP PRN ×4 (00:04→12:21)
[2018-12-01 04:48] VITALS: BP_SYST 98
[2018-12-01 05:06] LABS: BASOPHILS # (AUTO) 0.1 K/uL (0.0-0.2); BASOPHILS % (AUTO) 0.9 % (0.0-2.0); EOSINOPHILS # (AUTO) 0.1 K/uL (0.0-0.4); EOSINOPHILS % (AUTO) 1.9 % (0.0-4.0); HEMATOCRIT 37.8 % (36-48); HEMOGLOBIN 12.6 g/dL (12.0-16.0); LYMPHOCYTES # (AUTO) 2.9 K/uL (1.0-5.5); LYMPHOCYTES % (AUTO) 36.6 % (20.5-51.5); MEAN CORPUSCULAR HEMOGLOBIN 30 pg (27-31); MEAN CORPUSCULAR HGB CONC 33 % (32-36); MEAN CORPUSCULAR VOLUME 89 fL (79.0-98.0); MONOCYTES # (AUTO) 0.6 K/uL (0.0-1.0); MONOCYTES % (AUTO) 7.2 % (1.7-9.3); NEUTROPHILS # (AUTO) 4.2 K/uL (1.8-7.7); NEUTROPHILS % (AUTO) 53.4 % (40.0-70.0); PLATELET COUNT (AUTO) 340 K/uL (130-430); RED BLOOD CELL COUNT(AUTO) 4.24 MIL/uL (4.2-6.2); RED CELL DISTRIBUTION WIDTH 13.4 % (9.0-15.0); WHITE BLOOD COUNT (AUTO) 7.8 K/uL (4.8-10.8)
[2018-12-01 06:47] LABS: ALANINE AMINOTRANSFERASE 21 U/L (12-78); ALBUMIN 3.2 g/dL (3.4-4.8); ANION GAP 7 (5-15); ASPARTATE AMINOTRANSFERASE 13 U/L (10-37); CALCIUM 8.8 mg/dL (8.4-11.0); CHLORIDE 105 mmol/L (98-107); CREATININE 0.78 mg/dL (0.55-1.30); GLUCOSE 83 mg/dL (70-99); POTASSIUM 3.8 mmol/L (3.5-5.1); SODIUM SERUM 141 mmol/L (136-145); TOTAL BILIRUBIN 0.2 mg/dL (0.0-1.0); UREA NITROGEN, BLOOD 9 mg/dL (8-21)
[2018-12-01 07:19] LABS: GFR AFRICAN AMERICAN 119 mL/min (>90)
[2018-12-01 07:50] VITALS: BP_SYST 88
[2018-12-01 08:28] LABS: ERYTHROCYTE SEDIMENTATION RATE 5 MM/HR (0-20)
[2018-12-01 09:37] LABS: C-REACTIVE PROTEIN QUANT < 0.2 mg/dL (0-0.5)
[2018-12-01 12:30] VITALS: BP_SYST 119
[2018-12-01] MEDS ORDERED: ELAG200T PO (14:10)
[2018-12-01 14:22] VITALS: BP_SYST 119
== END 2018-12-01 15:30 | disposition home or self-care (01) | DRG 251 ==
LOC: SED 19:50 → SMU 11-29 05:36 → OBSVTOIN 11-29 05:36 → SMU 11-29 05:53
PROVIDERS: ADMIT Internal Medicine; ATTEND Internal Medicine
DX: R10.11 Right upper quadrant pain (principal); K56.7 Ileus, unspecified; N80.9 Endometriosis, unspecified; F41.9 Anxiety disorder, unspecified; G89.4 Chronic pain syndrome; N83.202 Unspecified ovarian cyst, left side; N83.201 Unspecified ovarian cyst, right side; N73.9 Female pelvic inflammatory disease, unspecified; Z79.899 Other long term (current) drug therapy; Z88.8 Allergy status to other drugs, medicaments and biological substances; Z88.0 Allergy status to penicillin
CPT/HCPCS: 36415; 80053; 83690-TC; 85025; 85651-TC; 86140; 96361; 96374; 96375; 96376; 99285; J1100; J1200; J2270; J2405; J2765; J7030

== ENCOUNTER 2019-01-02 14:55 | Emergency (ER) | payer OTHER ==
[~2019-01-02] VITALS: Ht 157.5 cm; Wt 68.9 kg
[~2019-01-02 14:55] MED LIST changes: +ELAG200T PO; -HYDR-3925 PO; -LEVO250T2 PO; -METR500T PO; -TRAM-350 PO
[2019-01-02 15:01] VITALS: BP_SYST 125
[2019-01-02] MEDS ORDERED: IBUPROFEN 800 MG TABLET PO ONE (15:30)
[2019-01-02] MEDS ORDERED: HYDROcodone/ACETAMIN 10-325 MG TAB PO ONE (15:30)
[2019-01-02 16:27] LABS: BASOPHILS % (AUTO) 0.5 % (0.0-2.0); EOSINOPHILS # (AUTO) 0.1 K/uL (0.0-0.4); EOSINOPHILS % (AUTO) 1.6 % (0.0-4.0); HEMATOCRIT 38.2 % (36-48); HEMOGLOBIN 12.7 g/dL (12.0-16.0); LYMPHOCYTES # (AUTO) 1.6 K/uL (1.0-5.5); LYMPHOCYTES % (AUTO) 20.4 % (20.5-51.5); MEAN CORPUSCULAR HEMOGLOBIN 30 pg (27-31); MEAN CORPUSCULAR HGB CONC 33 % (32-36); MEAN CORPUSCULAR VOLUME 90 fL (79.0-98.0); MONOCYTES # (AUTO) 0.8 K/uL (0.0-1.0); MONOCYTES % (AUTO) 9.5 % (1.7-9.3); NEUTROPHILS # (AUTO) 5.4 K/uL (1.8-7.7); PLATELET COUNT (AUTO) 321 K/uL (130-430); RED BLOOD CELL COUNT(AUTO) 4.26 MIL/uL (4.2-6.2)
[2019-01-02 16:37] LABS: CALCIUM 9.4 mg/dL (8.4-11.0); CREATININE 0.65 mg/dL (0.55-1.30); POTASSIUM 3.8 mmol/L (3.5-5.1)
[2019-01-02 16:41] LABS: ALBUMIN 3.6 g/dL (3.4-4.8); TOTAL BILIRUBIN 0.3 mg/dL (0.0-1.0)
[2019-01-02 16:47] LABS: PROTHROMBIN TIME 9.8 SECS (9.5-12.5)
[2019-01-02 17:34] VITALS: BP_SYST 114
== END 2019-01-02 17:35 | disposition home or self-care (01) ==
LOC: SED 14:55
DX: R10.31 Right lower quadrant pain (principal); F41.9 Anxiety disorder, unspecified; Z88.0 Allergy status to penicillin; Z88.6 Allergy status to analgesic agent; Z88.8 Allergy status to other drugs, medicaments and biological substances
CPT/HCPCS: 36415; 80053; 81002; 81025; 82150-TC; 83690-TC; 85025; 85610-TC; 85730-TC; 99284

== ENCOUNTER 2019-06-02 21:52 | Emergency (ER) | payer OTHER ==
[~2019-06-02] VITALS: Ht 157.5 cm; Wt 68.9 kg
[2019-06-02 22:00] VITALS: BP_SYST 127
[2019-06-02] MEDS ORDERED: ONDANSETRON HCL 4 MG/2 ML VIAL IVP ONE (22:45)
[2019-06-02] MEDS ORDERED: DIPHENHYDRAMINE INJ 50 MG/ML VIAL IVP ONE (22:45)
[2019-06-02] MEDS ORDERED: MORPHINE 4 MG/ML INJ. SYRINGE IVP ONE ×2 (22:45→23:30)
[2019-06-02] MEDS ORDERED: NACL 0.9% 1,000 ML IV ONE (22:45)
[2019-06-02 23:37] LABS: BILIRUBIN,URINE NEGATIVE (NEGATIVE); BLOOD, URINE NEGATIVE (NEGATIVE); CLARITY/URINE CLEAR (CLEAR); COLOR,URINE YELLOW (YELLOW); GLUCOSE,URINE NEGATIVE (NEGATIVE); KETONES,URINE NEGATIVE (NEGATIVE); LEUKOCYTE ESTERASE ,URINE TRACE (NEGATIVE); NITRITE, URINE NEGATIVE (NEGATIVE); PH,URINE 7.5 (5.0-8.0); PROTEIN URINE NEGATIVE (NEGATIVE); UROBILINOGEN,URINE 0.2 (0.2-1.0)
[2019-06-02 23:38] LABS: BASOPHILS % (AUTO) 0.5 % (0.0-2.0); EOSINOPHILS # (AUTO) 0.2 K/uL (0.0-0.4); EOSINOPHILS % (AUTO) 2.6 % (0.0-4.0); HEMATOCRIT 34.4 % (36-48); HEMOGLOBIN 11.5 g/dL (12.0-16.0); LYMPHOCYTES # (AUTO) 2.3 K/uL (1.0-5.5); LYMPHOCYTES % (AUTO) 29.2 % (20.5-51.5); MEAN CORPUSCULAR HEMOGLOBIN 30 pg (27-31); MEAN CORPUSCULAR HGB CONC 33 % (32-36); MEAN CORPUSCULAR VOLUME 89 fL (79.0-98.0); MONOCYTES # (AUTO) 0.7 K/uL (0.0-1.0); NEUTROPHILS # (AUTO) 4.6 K/uL (1.8-7.7); NEUTROPHILS % (AUTO) 58.7 % (40.0-70.0); PLATELET COUNT (AUTO) 369 K/uL (130-430); RED BLOOD CELL COUNT(AUTO) 3.85 MIL/uL (4.2-6.2); RED CELL DISTRIBUTION WIDTH 13.1 % (9.0-15.0); WHITE BLOOD COUNT (AUTO) 7.7 K/uL (4.8-10.8)
[2019-06-02 23:42] LABS: CALCIUM 8.4 mg/dL (8.4-11.0); CREATININE 0.5 mg/dL (0.55-1.30); POTASSIUM 3.7 mmol/L (3.5-5.1)
[2019-06-02 23:43] LABS: BACTERIA,URINE FEW /HPF (None Seen); RBC,URINE 0-3 /HPF (0-3)
[2019-06-02 23:47] LABS: ALBUMIN 3.4 g/dL (3.4-4.8); TOTAL BILIRUBIN 0.1 mg/dL (0.0-1.0)
[2019-06-03] MEDS ORDERED: KETAMINE 30 MG/3 ML SYRINGE 20 MG in NS 100 ML IV ONE (01:15)
[2019-06-03] MEDS ORDERED: MORPHINE 2 MG/ML INJ. SYRINGE IVP ONE (01:15)
[2019-06-03] MEDS ORDERED: KETAMINE 30 MG/3 ML SYRINGE ONE (01:25)
[2019-06-03 01:45] VITALS: BP_SYST 127
[2019-06-03] MEDS ORDERED: fentaNYL CITRATE/PF 100 MCG/2 ML AMP IVP ONE (02:00)
== END 2019-06-03 01:45 | disposition home or self-care (01) ==
LOC: SED 21:52
DX: N80.9 Endometriosis, unspecified (principal); R10.2 Pelvic and perineal pain; Z88.0 Allergy status to penicillin; Z88.8 Allergy status to other drugs, medicaments and biological substances
CPT/HCPCS: 36415; 76830; 76857; 80053; 81000; 81025; 85025; 96374; 96375 ×2; 96376; 99284; J1200; J2270 ×2; J2405; J3010; J7030

== ENCOUNTER 2019-07-04 19:47 | Emergency (ER) | payer OTHER ==
[~2019-07-04] VITALS: Ht 157.5 cm; Wt 73.9 kg
[2019-07-04 19:50] VITALS: BP_SYST 111
--- NOTE | 2019-07-04 19:50 | NUR ---
Patient triaged and placed in waiting room. VSS and patient appears in no acute distress at this time. Accompanied by boyfriend, awaiting available bed, and MD notified of need for MSE.
--- NOTE | 2019-07-04 22:46 | NUR ---
Patient to ER bed 1 to gown for evaluation. Side rails up. Report given to Porfirio DE LOS SANTOS.
[2019-07-04] MEDS ORDERED: NACL 0.9% 1,000 ML IV ONE (23:15)
--- NOTE | 2019-07-04 23:25 | NUR ---
PATIENT PRESENTS TO THE ER WITH THREE DAY HX OF LEFT LOWER QUADRANT PAIN; NO TRAUMA, NO OTHER REMARKABLE S/S; PATIENT TO ER #1 AT [id number]
[2019-07-04 23:26] LABS: BASOPHILS # (AUTO) 0.1 K/uL (0.0-0.2); BASOPHILS % (AUTO) 0.8 % (0.0-2.0); EOSINOPHILS # (AUTO) 0.2 K/uL (0.0-0.4); EOSINOPHILS % (AUTO) 1.7 % (0.0-4.0); HEMATOCRIT 36.6 % (36-48); HEMOGLOBIN 12.2 g/dL (12.0-16.0); LYMPHOCYTES # (AUTO) 2.7 K/uL (1.0-5.5); MEAN CORPUSCULAR HEMOGLOBIN 29 pg (27-31); MEAN CORPUSCULAR HGB CONC 33 % (32-36); MEAN CORPUSCULAR VOLUME 88 fL (79.0-98.0); MONOCYTES # (AUTO) 0.8 K/uL (0.0-1.0); MONOCYTES % (AUTO) 8.5 % (1.7-9.3); NEUTROPHILS # (AUTO) 5.3 K/uL (1.8-7.7); PLATELET COUNT (AUTO) 363 K/uL (130-430); RED BLOOD CELL COUNT(AUTO) 4.16 MIL/uL (4.2-6.2)
--- NOTE | 2019-07-04 23:26 | NUR ---
ERMD EVALUATION [id number]
--- NOTE | 2019-07-04 23:31 | NUR ---
IV PLACED #24 LAC WITHOUT INCIDENT
[2019-07-04 23:42] LABS: CALCIUM 8.6 mg/dL (8.4-11.0); CREATININE 0.67 mg/dL (0.55-1.30); POTASSIUM 3.8 mmol/L (3.5-5.1)
[2019-07-04 23:51] LABS: ALBUMIN 3.6 g/dL (3.4-4.8); TOTAL BILIRUBIN 0.1 mg/dL (0.0-1.0)
[2019-07-04 23:52] LABS: BILIRUBIN,URINE NEGATIVE (NEGATIVE); CLARITY/URINE CLOUDY (CLEAR); COLOR,URINE YELLOW (YELLOW); GLUCOSE,URINE NEGATIVE (NEGATIVE); KETONES,URINE NEGATIVE (NEGATIVE); LEUKOCYTE ESTERASE ,URINE 2+ (NEGATIVE); NITRITE, URINE NEGATIVE (NEGATIVE); PROTEIN URINE NEGATIVE (NEGATIVE); UROBILINOGEN,URINE 0.2 (0.2-1.0)
[2019-07-05] LABS: BLOOD, URINE TRACE (NEGATIVE)
[2019-07-05 00:29] LABS: BACTERIA,URINE MODERATE /HPF (None Seen); WBC,URINE 20-50 /HPF (0-3)
[2019-07-05] MEDS ORDERED: cefTRIAXone 1 GM IVPB PREMIX 50 ML IV ONE (00:30)
[2019-07-05] MEDS ORDERED: MORPHINE 2 MG/ML INJ. SYRINGE IVP ONE (00:30)
--- NOTE | 2019-07-05 00:47 | NUR ---
REASSESSMENT; PATIENT REMAINS SEDATE AND UNCHANGED
--- NOTE | 2019-07-05 01:04 | NUR ---
PATIENT REMAINS ON FIRE RANGER AND SAO2
--- NOTE | 2019-07-05 01:26 | NUR ---
REASSESSMENT; PATIENT STATES MARGINAL IMPROVEMENT IN SYMPTOMS; OTHERWISE SEDATE AND UNCHANGED; DISPOSITION PENDING
[2019-07-05 02:16] VITALS: BP_SYST 98
--- NOTE | 2019-07-05 02:18 | NUR ---
REASSESSMENT BY ERMD; PREPARATIONS TO DISCHARGE; IV OUT AND DRESSED; [facility]CI PER ERMD AND PATIENT DISCHARGED AMBULATORY WITH STEADY GAIT WITH ; IMPROVED
== END 2019-07-05 02:18 | disposition home or self-care (01) ==
LOC: SED 19:47
DX: N83.202 Unspecified ovarian cyst, left side (principal); N39.0 Urinary tract infection, site not specified; N28.9 Disorder of kidney and ureter, unspecified; F41.9 Anxiety disorder, unspecified; N73.9 Female pelvic inflammatory disease, unspecified; N80.9 Endometriosis, unspecified; Z88.1 Allergy status to other antibiotic agents; Z88.6 Allergy status to analgesic agent; Z88.8 Allergy status to other drugs, medicaments and biological substances
CPT/HCPCS: 36415; 76830; 76857; 80053; 81000; 81002; 81025; 85025; 87086; 96361; 96365; 96375; 99284; J0696; J2270; J7030 ×2

== ENCOUNTER → 2019-10-06 | Emergency (ER) | payer OTHER ==
[~2019-10-06] VITALS: Ht 162.6 cm; Wt 77.1 kg
[2019-10-06 18:16] VITALS: BP_SYST 130
--- NOTE | 2019-10-06 18:20 | NUR ---
Patient triaged and placed in waiting room. VSS and patient appears in no acute distress at this time. Accompanied by SELF, awaiting available bed, and MD notified of need for MSE.
[2019-10-06 20:36] LABS: BILIRUBIN,URINE NEGATIVE (NEGATIVE); BLOOD, URINE NEGATIVE (NEGATIVE); COLOR,URINE YELLOW (YELLOW); GLUCOSE,URINE NEGATIVE (NEGATIVE); KETONES,URINE NEGATIVE (NEGATIVE); LEUKOCYTE ESTERASE ,URINE NEGATIVE (NEGATIVE); NITRITE, URINE NEGATIVE (NEGATIVE); PROTEIN URINE NEGATIVE (NEGATIVE); UROBILINOGEN,URINE 0.2 (0.2-1.0)
[2019-10-06 20:42] LABS: CLARITY/URINE SLIGHTLY HAZY (CLEAR)
--- NOTE | 2019-10-06 21:10 | NUR ---
Called in x , no answer
--- NOTE | 2019-10-06 21:10 | NUR ---
Patient left without being seen. No further treatment provided. ER MD aware
== END | disposition still patient (30) ==
LOC: SED 18:16
DX: R10.30 Lower abdominal pain, unspecified (principal); R11.0 Nausea; Z53.21 Procedure and treatment not carried out due to patient leaving prior to being seen by health care provider
CPT/HCPCS: 81003

== ENCOUNTER 2020-09-09 11:01 | Emergency (ER) | payer BC, OTHER, SELFPAY ==
[~2020-09-09] VITALS: Ht 160 cm; Wt 81.6 kg
[2020-09-09 11:24] VITALS: BP_SYST 113
[2020-09-09 12:35] LABS: BASOPHILS # (AUTO) 0.1 K/uL (0.0-0.2); BILIRUBIN,URINE NEGATIVE (NEGATIVE); BLOOD, URINE NEGATIVE (NEGATIVE); CLARITY/URINE CLEAR (CLEAR); COLOR,URINE YELLOW (YELLOW); EOSINOPHILS % (AUTO) 0.5 % (0.0-4.0); GLUCOSE,URINE NEGATIVE (NEGATIVE); HEMATOCRIT 37.7 % (36-48); HEMOGLOBIN 12.6 g/dL (12.0-16.0); KETONES,URINE NEGATIVE (NEGATIVE); LEUKOCYTE ESTERASE ,URINE NEGATIVE (NEGATIVE); LYMPHOCYTES # (AUTO) 1.5 K/uL (1.0-5.5); LYMPHOCYTES % (AUTO) 18.2 % (20.5-51.5); MEAN CORPUSCULAR HEMOGLOBIN 29 pg (27-31); MEAN CORPUSCULAR HGB CONC 34 % (32-36); MEAN CORPUSCULAR VOLUME 88 fL (79.0-98.0); MONOCYTES # (AUTO) 0.5 K/uL (0.0-1.0); MONOCYTES % (AUTO) 6.2 % (1.7-9.3); NEUTROPHILS # (AUTO) 6.1 K/uL (1.8-7.7); NEUTROPHILS % (AUTO) 74.1 % (40.0-70.0); NITRITE, URINE NEGATIVE (NEGATIVE); PLATELET COUNT (AUTO) 330 K/uL (130-430); PROTEIN URINE NEGATIVE (NEGATIVE); RED BLOOD CELL COUNT(AUTO) 4.29 MIL/uL (4.2-6.2); RED CELL DISTRIBUTION WIDTH 14.2 % (9.0-15.0); UROBILINOGEN,URINE 0.2 (0.2-1.0); WHITE BLOOD COUNT (AUTO) 8.2 K/uL (4.8-10.8)
[2020-09-09 12:46] LABS: CALCIUM 8.9 mg/dL (8.4-11.0); CREATININE 0.64 mg/dL (0.55-1.30)
[2020-09-09 14:00] VITALS: BP_SYST 113
== END 2020-09-09 13:58 | disposition home or self-care (01) ==
LOC: SED 11:01
DX: O20.0 Threatened abortion (principal); Z88.0 Allergy status to penicillin; Z88.6 Allergy status to analgesic agent; Z3A.01 Less than 8 weeks gestation of pregnancy
CPT/HCPCS: 36415; 76801; 76817; 80048; 81003; 84702-TC; 85025; 86886; 86900; 86901; 99284

== ENCOUNTER 2021-06-25 17:28 | Emergency (ER) | payer BC, OTHER ==
--- NOTE | 2021-06-25 18:32 | NUR ---
ER IN TRIAGE examining patient.
[2021-06-25 19:27] LABS: CALCIUM 9.1 mg/dL (8.4-11.0); CREATININE 0.58 mg/dL (0.55-1.30); MEAN CORPUSCULAR HEMOGLOBIN 28 pg (27-31); POTASSIUM 4.2 mmol/L (3.5-5.1)
[2021-06-25 19:33] LABS: ALBUMIN 3.8 g/dL (3.4-4.8); TOTAL BILIRUBIN 0.1 mg/dL (0.0-1.0)
[2021-06-25 19:36] LABS: BASOPHILS % (AUTO) 0.5 % (0.0-2.0); EOSINOPHILS # (AUTO) 0.2 K/uL (0.0-0.4); EOSINOPHILS % (AUTO) 2.1 % (0.0-4.0); HEMATOCRIT 40.1 % (36-48); HEMOGLOBIN 13.4 g/dL (12.0-16.0); LYMPHOCYTES # (AUTO) 2.2 K/uL (1.0-5.5); LYMPHOCYTES % (AUTO) 24.7 % (20.5-51.5); MEAN CORPUSCULAR HGB CONC 34 % (32-36); MEAN CORPUSCULAR VOLUME 83 fL (79.0-98.0); MONOCYTES # (AUTO) 0.6 K/uL (0.0-1.0); MONOCYTES % (AUTO) 7.1 % (1.7-9.3); NEUTROPHILS # (AUTO) 5.9 K/uL (1.8-7.7); NEUTROPHILS % (AUTO) 65.6 % (40.0-70.0); PLATELET COUNT (AUTO) 412 K/uL (130-430); RED BLOOD CELL COUNT(AUTO) 4.82 MIL/uL (4.2-6.2); RED CELL DISTRIBUTION WIDTH 14.3 % (9.0-15.0)
--- NOTE | 2021-06-25 19:39 | NUR ---
called for triage. no answer
--- NOTE | 2021-06-25 19:40 | NUR ---
PATIENT CALLED FOR TRIAGE. PATIENT ELOPED.
[2021-06-25 21:19] LABS: C-REACTIVE PROTEIN QUANT 0.3 mg/dL (0-0.5)
== END 2021-06-25 19:40 | disposition left against medical advice (07) ==
LOC: SED 17:28
DX: R10.2 Pelvic and perineal pain (principal); Z88.0 Allergy status to penicillin; Z88.8 Allergy status to other drugs, medicaments and biological substances
CPT/HCPCS: 36415; 80053; 82150; 83605; 83690; 84703; 85025; 86140; 99283